=== PATIENT | female | born 1960 | race Caucasian/White ===

== ENCOUNTER 2016-03-12 19:24 | Inpatient (IN) | payer BC, OTHER ==
[~2016-03-12] VITALS: Ht 157.5 cm; Wt 90.0 kg
[2016-03-12] MEDS ORDERED: SOD CHLORIDE 0.9% 1,000 ML IV STA (21:16)
[2016-03-12] MEDS ORDERED: ONDANSETRON 4 MG INJ IV STA ×2 (21:16→21:47)
[2016-03-12] MEDS ORDERED: morphine 4 MG/ML VIAL IV STA (21:16)
[2016-03-12] MEDS ORDERED: METF1000 PO (21:33)
[2016-03-12] MEDS ORDERED: BENA20TA48 PO (21:34)
[2016-03-12] MEDS ORDERED: SIMV10TA PO (21:34)
[2016-03-12 22:02] LABS: ALBUMIN 4.1 g/dl (3.3-4.9); CHLORIDE 101 mmol/L (97-110)
[2016-03-12 22:03] LABS: POTASSIUM 4.6 mmol/L (3.5-5.1); SODIUM 136 mmol/L (135-144)
[2016-03-12 22:05] LABS: ALANINE AMINOTRANSFERASE 30 IU/L (13-69); ALBUMIN/GLOBULIN RATIO 1.07; ALKALINE PHOSPHATASE 147 IU/L (42-121); ANION GAP 22 (8-16); ASPARTATE AMINO TRANSFERASE 41 IU/L (15-46); BILIRUBIN,INDIRECT 0.6 mg/dl (0-1.1); BILIRUBIN,TOTAL 0.6 mg/dl (0.2-1.3); BLOOD UREA NITROGEN 15 mg/dl (7-20); CARBON DIOXIDE 18 mmol/L (21-31); CREATININE 0.59 mg/dl (0.44-1.00); GLUCOSE 260 mg/dl (70-220); TOTAL PROTEIN 7.9 g/dl (6.1-8.1)
[2016-03-12 22:06] LABS: CALCIUM 9.1 mg/dl (8.4-10.2)
[2016-03-12 22:07] LABS: HEMATOCRIT 38.5 % (37.0-47.0); HEMOGLOBIN 13.2 g/dl (12.0-16.0); MEAN CORPUSCULAR HEMOGLOBIN 28.4 pg (29.0-33.0); MEAN CORPUSCULAR HGB CONC 34.3 g/dl (32.0-37.0); MEAN CORPUSCULAR VOLUME 82.7 fl (82.0-101.0); MEAN PLATELET VOLUME 8.6 fl (7.4-10.4); PLATELET COUNT 243 10^3/UL (140-440); RED BLOOD COUNT 4.65 10^6/ul (4.20-5.40); RED CELL DISTRIBUTION WIDTH 14.2 % (11.5-14.5); UNCORRECTED WBC 7.2 10^3/ul (4.8-10.8); WHITE BLOOD COUNT 7.2 10^3/ul (4.8-10.8)
[2016-03-12] MEDS ORDERED: SS SC (22:07)
[2016-03-12 22:09] LABS: CONDITION 1; LH ANALYZER COMMENTS 1
[2016-03-12] MEDS ORDERED: NPH,100I5 SQ (22:09)
[2016-03-12 22:18] LABS: TROPONIN-I < 0.012 ng/ml (0.00-0.12)
--- NOTE | 2016-03-12 22:18 | RADRPT ---
PROCEDURE: CT Abdomen and Pelvis without contrast CLINICAL INDICATION: Abdominal pain, left quadrant TECHNIQUE: Transaxial images were obtained through the abdomen and pelvis on a multi-slice scanner without the intravenous contrast administration. No oral contrast had previously been given. Sagit stevenson and coronal re-formations were subsequently reconstructed. One or more of the following dose reduction techniques were used: - Automated exposure control. - Adjustment of the mA and/or kV according to patient size. - Use of iterative reconstruction technique. Radiation dose: CTDIvol = 22.32 mGy; DLP = 1222.02 mGy-cm. COMPARISON: No prior studies are available for comparison. FINDINGS: Lung bases: The visualized lung bases appear unremarkable. Liver: Normal in size and in attenuation. There is no focal lesion. Gallbladder: Surgical betsy are seen in the gallbladder fossa. Bile ducts: The intra and extrahepatic bile ducts are normal in caliber. Pancreas: Appears normal with no mass or inflammation evident. Spleen: Normal in size with no focal lesion. Adrenals: Normal with no mass identified. Kidneys, ureters and bladder: The right kidney appears normal and there is no hydronephrosis. The r ight ureter appears unremarkable. The left kidney appears edematous and there is considerable perin ephric stranding. There is mild left hydronephrosis. No nephrolith is evident. The ureter is nond ilated and no nephrolith is identified. The bladder is less than optimally distended but appears un remarkable. Phleboliths are seen in the pelvis. Reproductive organs: The uterus is absent and no adnexal mass is identified. Stomach and bowel: There are a few colonic diverticuli but there is no evidence of bowel obstruction or inflammation. The stomach appears normal. Appendix: A normal vermiform appendix is evident. Peritoneum: No free intraperitoneal fluid or air is identified. Aorta: Normal in caliber with no aneurysmal dilatation. IVC: Unremarkable. Lymph nodes: No pathologically enlarged nodes are identified. Osseous structures: Moderate degenerative spine changes are noted. IMPRESSION: 1. The left kidney appears edematous with considerable perinephric stranding compatible with inflam mation or edema. There is mild pelvocaliectasis but no nephrolith is evident. The left ureter is n ormal in caliber and no ureterolith is identified. This raises the possibility of either a stone th at is passed, a nonopaque stone or a sloughed papilla resulting in obstruction, or diffuse pyeloneph ritis. The right kidney, both ureters and the bladder appear unremarkable. 2. There are a couple colonic diverticuli but there is no evidence of bowel obstruction or inflamma tion and a normal vermiform appendix is evident. 3. Status post cholecystectomy with no bile duct dilatation or pancreatic pathology evident. 4. There is no free intraperitoneal fluid or air. 5. Status post hysterectomy. 6. Degenerative spine changes. Physician Lori Date Time Electronically viewed and signed by Physician Lori on 03/12/2016 22:18 RH/
[2016-03-12] MEDS ORDERED: INSULIN LISPRO 100 UNIT/ML VIAL SC STA (22:19)
[2016-03-12] MEDS ORDERED: ACETAMINOPHEN 325 MG TAB PO ONE (22:30)
[2016-03-12 22:32] LABS: LYMPHOCYTES # 0.1 10^3/ul (0.8-2.9); MONOCYTE # 0.1 10^3/ul (0.3-0.9); NEUTROPHIL # 4.4 10^3/ul (1.6-7.5)
[2016-03-12] MEDS ORDERED: VANCOMYCIN 1 GM (PMX) 250 ML IVPB ONE (22:44)
[2016-03-12] MEDS ORDERED: AZTREONAM 1 GM/NS (PMX) 50 ML IVPB ONE (22:44)
[2016-03-12] MEDS ORDERED: SODIUM CHLORIDE 0.9% 1L BAG IV* ONE (22:44)
--- NOTE | 2016-03-12 22:53 | ERA ---
ER Documentation Chief Complaint Date/Time DATE: 03/12/16 TIME: 22:51 Chief Complaint left sided abd pain x 2 days HPI Patient is a 56-year-old female with diabetes and hypertension who presents with left-sided flank pain. The symptoms started yesterday. Today was worse. The pain is constant. She has had no treatment as of yet. She has had vomiting and fever. Upon review of old medical records this is the patient's first visit to the ER. She does not remember the name of her primary doctor. ROS All systems reviewed and are negative except as per history of present illness. Medications Home Meds Reported Medications NPH, Human Insulin Isophane (Humulin N Kwikpen) 100 Unit/1 Ml Insuln.pen, UNIT SQ BID, EA 26 UNITS QAM AND 20 UNITS QHS 03/12/16 Insulin Human Regular (Novolin-R U-100) 100 Unit/Ml Soln, 5 UNITS SC AC MEALS BID, EA 03/12/16 Simvastatin* (Zocor*) 10 Mg Tablet, 10 MG PO QHS, #30 TAB 03/12/16 Benazepril Hcl* (Benazepril Hcl*) 20 Mg Tablet, 20 MG PO DAILY, #30 TAB 03/12/16 Metformin Hcl* (Metformin Hcl*) 1,000 Mg Tablet, 1000 MG PO WITH BREAKFAST DINNE , #60 TAB 03/12/16 Allergies Allergies: Coded Allergies: Penicillins (Unverified Allergy, Unknown, 03/12/16) PMhx/Soc Medical and Surgical Hx: pt denies Surgical Hx Anesthesia Reaction: No Hx Neurological Disorder: No Hx Respiratory Disorders: No Hx Cardiac Disorders: No Hx Psychiatric Problems: No Hx Miscellaneous Medical Probl: Yes (HTN, hyperlipidemia, DM) Hx Alcohol Use: No Hx Substance Use: No Hx Tobacco Use: No Smoking Status: Never smoker FmHx Family History: diabetes Physical Exam Vitals Vital Signs Date Time Temp Pulse Resp B/P Pulse Ox O2 Delivery O2 Flow Rate FiO2 03/12/16 22:18 103.0 03/12/16 20:13 101.7 76 20 220/117 96 Physical Exam Const: Moderate distress Head: Atraumatic Eyes: Normal Conjunctiva ENT: Normal External Ears, Nose and Mouth. Neck: Full range of motion..~ No meningismus. Resp: Clear to auscultation bilaterally Cardio: Regular rate and rhythm, no murmurs Abd: Soft, left-sided abdominal pain as well as left-sided flank pain Skin: No petechiae or rashes Back: No midline or flank tenderness Ext: No cyanosis, or edema Neur: Awake and alert Psych: Normal Mood and Affect Result Diagram: 03/12/16213103/12/162131 Results 24 hrs Laboratory Tests Test 03/12/16 21:32 03/12/16 22:26 Alanine Aminotransferase (ALT/SGPT) 30IU/L Albumin 4.1g/dl Albumin/Globulin Ratio 1.07 Alkaline Phosphatase 147IU/L Anion Gap 22 Aspartate Amino Transf (AST/SGOT) 41IU/L Band Neutrophils % 36.0% Basophils # 10^3/ul Basophils % % Blood Morphology Comment Blood Urea Nitrogen 15mg/dl Calcium Level 9.1mg/dl Carbon Dioxide Level 18mmol/L Chloride Level 101mmol/L Creatinine 0.59mg/dl Direct Bilirubin 0.00mg/dl Eosinophils # 10^3/ul Eosinophils % % Globulin 3.80g/dl Glucose Level 260mg/dl Hematocrit 38.5% Hemoglobin 13.2g/dl Indirect Bilirubin 0.6mg/dl Lipase 100U/L Lymphocytes # 0.110^3/ul Lymphocytes % 2.0% Mean Corpuscular Hemoglobin 28.4pg Mean Corpuscular Hemoglobin Concent 34.3g/dl Mean Corpuscular Volume 82.7fl Mean Platelet Volume 8.6fl Monocytes # 0.110^3/ul Monocytes % 1.0% Neutrophils # 4.410^3/ul Neutrophils % 61.0% Nucleated Red Blood Cells # 10^3/ul Nucleated Red Blood Cells % 0.0/100WBC Platelet Count 05588^3/UL Potassium Level 4.6mmol/L Red Blood Count 4.6510^6/ul Red Cell Distribution Width 14.2% Sodium Level 136mmol/L Total Bilirubin 0.6mg/dl Total Protein 7.9g/dl Troponin I < 0.012ng/ml White Blood Count 7.210^3/ul Bedside Glucose 247mg/dL Current Medications Medications (Trade) Dose Ordered Sig/Nolvia Route PRN Reason Start Time Stop Time Status Last Admin Dose Admin Sodium Chloride (NS) 1,000 ml @ 1,000 mls/hr Q1H STAT IV 03/12/16 21:16 03/12/16 22:15 DC 03/12/16 21:30 Morphine Sulfate (morphine) 4 mg ONCE STAT IV 03/12/16 21:16 03/12/16 21:17 DC 03/12/16 21:30 Ondansetron HCl (Zofran Inj) 4 mg ONCE STAT IV 03/12/16 21:16 03/12/16 21:17 DC 03/12/16 21:30 Ondansetron HCl (Zofran Inj) 4 mg ONCE STAT IV 03/12/16 21:47 03/12/16 21:48 DC 03/12/16 21:50 Acetaminophen (Tylenol Tab) 650 mg ONCE ONCE PO 03/12/16 22:30 03/12/16 22:31 DC 03/12/16 22:22 Insulin Human Lispro (Humalog) 5 unit ONCE STAT SC 03/12/16 22:19 03/12/16 22:41 DC Lorazepam (Ativan) 0.5 mg ONCE ONCE IV 03/12/16 23:00 03/12/16 23:01 Sodium Chloride 2740 ml 2,740 ml BOLUS OVER 2 HOURS STAT IV* 03/12/16 22:44 03/12/16 22:45 UNV Vancomycin HCl 250 ml @ 125 mls/hr ONCE STAT IVPB 03/12/16 22:44 03/13/16 00:43 UNV Aztreonam (Azactam 1gm/NS (Pmx)) 50 ml @ 100 mls/hr ONCE STAT IVPB 03/12/16 22:44 03/12/16 23:13 UNV Procedures/MDM Chest x-ray pending. CT scan shows pyelonephritis per radiology. Admit MDM: Patient's infectious symptoms have not stabilized and the patient is at risk of rapid decompensation. The patient will be admitted for careful hydration, antibiotic therapy, and infectious source control. Severe Sepsis criteria: Infectious source: Pyelonephritis End organ damage indicated by: No end organ damage at this time Sepsis Management: Time of recognition of sepsis: 22:18 Within 3 hours of recognition: Blood cultures x 2 before broad-spectrum antibiotics: Yes 30 ml/kg NS bolus Completed Initial lactate pending Repeat lactate pending Time of recognition of septic shock: No septic shock Septic Shock Assessment: Any lactic acid > 4.0 No Persistent hypotension (SBP < 90 or 40 mmHg drop, MAP < 65) despite 30 mL/kg IV fluid bolus No Volume Re-assessment for Septic Shock (post 30 ml/kg bolus): No septic shock at this time Persistent Hypotension Treatment: Comfort care No Central line Not Required Vasopressor started Not required I considered further perfusion assessment with CVP measurement, SCVO2, bedside ultrasound volume assessment, passive leg raise, trial of further fluid bolus. And proceeded with 30 ml/kg fluid bolus of NSS, broad spectrum antibiotics, and admission. The patient is pending lactic acid and urinalysis results at this time. The patient will be signed out to the oncoming physician who will call the admitting doctor for admission orders. Accepting Care Team Current data and ongoing care discussed. Admitting Physician: Yusef connist for admission given the patient's insurance account assistant(s): None Outstanding Data: Culture results, lactic acid, and urinalysis Critical Care: Critical care time 35 minutes excluding all billable procedures Emergent fluid management while maintaining close respiratory support. Provision of immediate and broad-spectrum antibiotic therapy. Simultaneous assessment for possible sources in order to direct targeted therapy. Consideration for invasive and chemical support to prevent cardiopulmonary collapse. Departure Diagnosis: Primary Impression: Sepsis Qualified Code: A41.9 - Sepsis, due to unspecified organism Additional Impressions: Pyelonephritis Abdominal pain Qualified Code: R10.12 - Left upper quadrant pain Condition: CHACHA Riggins MD Mar 12, 2016 22:53
[2016-03-12 22:59] LABS: ADD UMIC YES; URINE BILIRUBIN (Dip) NEGATIVE (NEGATIVE); URINE BLOOD (Dip) 3+ (NEGATIVE); URINE COLOR LT. YELLOW (YELLOW); URINE GLUCOSE (Dip) >=1000 % (NEGATIVE); URINE KETONES (Dip) TRACE (NEGATIVE); URINE LEUKOCYTE ESTERASE (Dip) 1+ (NEGATIVE); URINE NITRITE (Dip) NEGATIVE (NEGATIVE); URINE TOTAL PROTEIN (Dip) TRACE (NEGATIVE); URINE UROBILINOGEN (Dip) 0.2 E.U./dL (0.1-1.0)
[2016-03-12] MEDS ORDERED: LORAZEPAM 2 MG INJ IV ONE (23:00)
[2016-03-12 23:12] LABS: BACTERIA,URINE MANY; SQUAMOUS EPITHELIAL CELL,UR MODERATE; URINE RBCS >50 /HPF (0)
--- NOTE | 2016-03-12 23:33 | RADRPT ---
PROCEDURE: CHEST - 1 VIEW CLINICAL INDICATION: 56-year-old female with chest pain. TECHNIQUE: A single frontal AP semi-erect view of the chest was performed portably. The images we re reviewed on a PACS workstation. COMPARISON: Chest x-ray November 14, 2008; CT abdomen/pelvis March 12, 2016. FINDINGS: The cardiomediastinal silhouette is within normal limits and without significant interval change. T here is no evidence for an infiltrate. There is no evidence for congestive heart failure. There is no evidence for pneumothorax. The osseous structures are intact. IMPRESSION: No evidence for active cardiopulmonary disease. .David Abarca MD, MD Date Time Electronically viewed and signed by .David Abarca MD, on 03/12/2016 23:32 .Piedad/
[2016-03-12 23:38] LABS: INR 1.09; PROTIME 14.1 Sec (12.2-14.2); PT RATIO 1.1
[2016-03-12 23:39] LABS: PARTIAL THROMBOPLASTIN TIME 29.3 Sec (25.0-35.0)
[2016-03-12 23:52] VITALS: TEMP 99.8
[2016-03-13] VITALS (10 sets, daily range): BP systolic 92–131; BP diastolic 46–63; PULSE 101–108; RESP 18–20; Ht 157.5 cm; Wt 90.0 kg
[2016-03-13] MEDS ORDERED: ONDANSETRON 4 MG INJ IV PRN
[2016-03-13] MEDS ORDERED: ACETAMINOPHEN 325 MG TAB PO PRN
[2016-03-13] MEDS ORDERED: SOD CHLORIDE 0.9% 1,000 ML IV STA (00:19)
[2016-03-13] MEDS: SOD CHLORIDE 0.9% 1,000 ML IV SCH ×7 (00:32→23:40)
--- NOTE | 2016-03-13 00:54 | QN ---
Documentation Comment H&P dict a/p 1. [email or web address] 2. LUCIANA Garcia MD Mar 13, 2016 00:54
[2016-03-13] MEDS ORDERED: morphine 4 MG/ML VIAL IV PRN (01:00)
--- NOTE | 2016-03-13 02:06 | HP ---
DATE OF ADMISSION: 03/13/2016 CHIEF COMPLAINT: Abdominal pain. HISTORY OF PRESENT ILLNESS: Ms. Lara presents to the emergency room at [facility] h a 1-day history of abdominal pain, which she localizes to the left flank area. This is associated with some nausea and fever. She states that she has been unable to eat over the last several hours , though she ate last approximately 8-9 hours ago. She has been tolerating water. She denies any d ysuria. States that she did have some flu-like symptoms approximately 1 week ago, but did fully rec overed from that. PAST MEDICAL HISTORY: Significant for diabetes. MEDICATIONS: Include: 1. NPH insulin 5 units b.i.d. 2. Sliding scale. 3. Zocor 10 mg daily. 4. Benazepril. ALLERGIES: PENICILLIN. SOCIAL HISTORY: Lives in [place] with her and 2 adult children. Denies tobacco, alcoh ol, or illicit drug use. FAMILY HISTORY: Noncontributory. REVIEW OF SYSTEMS: Five systems reviewed and found not to be revealing. PHYSICAL EXAMINATION: VITAL SIGNS: Blood pressure is 110/69, pulse rate 110, respirations 20, temperature is 99.8; it shira uld be noted that T-max is 103 here in the emergency room. GENERAL: A middle-aged woman, somewhat ill appearing. HEENT: Normocephalic, atraumatic without any scleral icterus or perioral cyanosis. Mucous membrane s are moist. NECK: Soft and supple without masses. No evidence of jugular venous distention or carotid bruits. CHEST: Clear to auscultation and percussion bilaterally. HEART: Regular rate and rhythm, S1-S2, no added sounds. ABDOMEN: Soft, nontender, nondistended without palpable hepatosplenomegaly. EXTREMITIES: Without clubbing, cyanosis or edema. SKIN: Without rashes. NEUROLOGIC: Grossly intact. LABORATORY STUDIES: Reveal hemoglobin of 13.2 g/dL, white count of 7200, platelets of 243,000. INR is 1.1. Sodium 136, potassium 4.6, chloride 101, bicarbonate 18, BUN 15, creatinine 0.59, glucose 260. Liver function tests remarkable only for an alkaline phosphatase 147. Lactic acid was 5.1. U A shows greater than 50 red cells and white cells. CT scan of abdomen and pelvis reveals left-sided edematous-appearing kidney without hydronephrosis and with perinephric stranding. ASSESSMENT AND PLAN: 1. Pyelonephritis. We will plan to treat with intravenous fluids and aztreonam, and await urine cu lture. 2. Diabetes. Continue Accu-Cheks and sliding scale. 3. Prophylaxis with Lovenox. Dictated By: LUCIANA THOMAS MD RER/NTS Conf#: [id number] DID#: [id number]
[2016-03-13] MEDS: ACETAMINOPHEN 325 MG TAB PO PRN ×3 (03:56→22:08)
[2016-03-13] MEDS ORDERED: SOD CHLORIDE 0.9% 1,000 ML IV ONE ×2 (04:30→05:30)
[2016-03-13] MEDS ORDERED: AZTREONAM 1 GM/NS (PMX) 50 ML IVPB SCH (06:00)
[2016-03-13 06:01] LABS: BASOPHILS % 0.1 % (0.0-2.0); HEMATOCRIT 30.6 % (37.0-47.0); HEMOGLOBIN 10.7 g/dl (12.0-16.0); LYMPHOCYTES # 0.4 10^3/ul (0.8-2.9); MEAN CORPUSCULAR HEMOGLOBIN 28.9 pg (29.0-33.0); MEAN CORPUSCULAR HGB CONC 34.8 g/dl (32.0-37.0); MEAN PLATELET VOLUME 8.7 fl (7.4-10.4); MONOCYTE # 0.7 10^3/ul (0.3-0.9); MONOCYTES % 4.9 % (0.0-11.0); NEUTROPHIL # 12.9 10^3/ul (1.6-7.5); PLATELET COUNT 197 10^3/UL (140-440); RED BLOOD COUNT 3.69 10^6/ul (4.20-5.40); RED CELL DISTRIBUTION WIDTH 14.6 % (11.5-14.5)
[2016-03-13 06:17] LABS: CONDITION 1; LH ANALYZER COMMENTS 1; SUSPECT 1
[2016-03-13 07:30] LABS: POTASSIUM 3.2 mmol/L (3.5-5.1)
[2016-03-13 07:32] LABS: CREATININE 0.61 mg/dl (0.44-1.00)
[2016-03-13 07:33] LABS: CALCIUM 7.4 mg/dl (8.4-10.2)
[2016-03-13] MEDS: metFORMIN 500 MG TAB PO SCH ×2 (08:54→18:13)
[2016-03-13] MEDS: BENAZEPRIL 20 MG TAB PO SCH (09:00)
[2016-03-13] MEDS: INSULIN ASPART [NOVOLOG] 3 ML PEN SC SCH ×4 (09:00→20:58)
[2016-03-13] MEDS ORDERED: DEXTROSE 50% 50 ML SYRINGE IV PRN ×2 (10:00)
[2016-03-13] MEDS ORDERED: GLUCAGON 1 MG INJ IM PRN (10:00)
[2016-03-13] MEDS ORDERED: GLUCOSE GEL 15 GRAM TUBE PO PRN ×2 (10:00)
[2016-03-13] MEDS ORDERED: GLUCOSE GEL 15 GRAM TUBE BUCCAL PRN (10:00)
[2016-03-13] MEDS ORDERED: POTASSIUM CHLORIDE (SR) 20 MEQ TAB PO STA (11:05)
[2016-03-13] MEDS: IMIPENEM-CILAST 500MG IV (PMX) 100 ML IVPB SCH ×3 (11:43→23:39)
[2016-03-13] MEDS: ENOXAPARIN 40 MG/0.4 ML SYG SC SCH (11:51)
[2016-03-13] MEDS: ONDANSETRON 4 MG INJ IV PRN (13:20)
--- NOTE | 2016-03-13 14:23 | PN ---
Date/Time of Note Date/Time of Note DATE: 03/13/16 TIME: 14:08 Assessment/Plan VTE Prophylaxis VTE Prophylaxis Intervention: LMWH Lines/Catheters IV [facility]ter [facility]from [facility] Urinary Cath still in place: No Assessment/Plan Assessment/Plan 56 yo female with: 1. GNR bacteremia, Pyelonephritis and sepsis, still with mild TTP left flank/LLQ Double GNR coverage with Imipenem and Levaquin and need to repeat blood cx on Monitor for now and follow up with cultures for antibiotic adjustment. Continue IVF for now 2. Diabetes Mellitus: Metformin resumed, will add Lantus 20 units qhs (patient on NPH 28 AM/20 HS), may also resume Novolog 5 units QAC if needed Continue Accu-Cheks and sliding scale. A1c pending 3. Hypertension: Holding benazepril due to sepsis and hypotensive episode on admission 4. Hyperlipidemia: continue statin therapy. 5. Hypokalemia: replete Prophylaxis: DVT ppx with Lovenox and GI ppx with Pepcid Disposition: double GNR coverage given severe sxs, f/u culture sensitivities, repeat blood cx on 03/14 for clearance Subjective 24 Hr Interval Summary Free Text/Dictation Patient with episodes of chills Fever overnight Mild sinus tach but BP better Blood and Urine cx positive for GNR Exam/Review of Systems Vital Signs Vitals Vital Signs Date Time Temp Pulse Resp B/P Pulse Ox O2 Delivery O2 Flow Rate FiO2 03/13/16 12:30 99.6 104 20 131/63 96 Room Air Intake and Output 03/12/16 03/12/16 03/13/16 15:00 23:00 07:00 Intake Total 2690 ml Output Total 0 ml Balance 2690 ml Exam Constitutional: alert, oriented, other (having chills ), well developed Respiratory: clear to auscultation, normal air movement Cardiovascular: nl pulses, other (sinus tachy ) Gastrointestinal: soft, tender (mild TTP left flank/LLQ) Musculoskeletal: nl extremities to inspection Extremities: normal pulses, other (no edema, clubbing or cyanosis ) Neurological: COIL WINDER REPAIR II-XII intact, nl mental status, nl speech, other ( generalised weakness ) Results Result Diagram: 03/13/1641903/13/16419 Results 24 hrs Laboratory Tests Test 03/12/16 21:32 03/12/16 22:26 03/12/16 22:47 03/12/16 23:06 Alanine Aminotransferase (ALT/SGPT) 30 Albumin 4.1 Albumin/Globulin Ratio 1.07 Alkaline Phosphatase 147 H Anion Gap 22 H Aspartate Amino Transf (AST/SGOT) 41 Band Neutrophils % 36.0 H Basophils # Basophils % Blood Morphology Comment Blood Urea Nitrogen 15 Calcium Level 9.1 Carbon Dioxide Level 18 L Chloride Level 101 Creatinine 0.59 Direct Bilirubin 0.00 Eosinophils # Eosinophils % Globulin 3.80 H Glucose Level 260 H Hematocrit 38.5 Hemoglobin 13.2 Indirect Bilirubin 0.6 Lipase 100 Lymphocytes # 0.1 L Lymphocytes % 2.0 L Mean Corpuscular Hemoglobin 28.4 L Mean Corpuscular Hemoglobin Concent 34.3 Mean Corpuscular Volume 82.7 Mean Platelet Volume 8.6 Monocytes # 0.1 L Monocytes % 1.0 Neutrophils # 4.4 Neutrophils % 61.0 Nucleated Red Blood Cells # Nucleated Red Blood Cells % 0.0 Platelet Count 243 Potassium Level 4.6 Red Blood Count 4.65 Red Cell Distribution Width 14.2 Sodium Level 136 Total Bilirubin 0.6 Total Protein 7.9 Troponin I < 0.012 White Blood Count 7.2 Bedside Glucose 247 H Urine Bacteria MANY Urine Bilirubin NEGATIVE Urine Clarity CLOUDY Urine Color LT. YELLOW Urine Glucose >=1000 Urine Hemoglobin 3+ H Urine Ketones TRACE H Urine Leukocyte Esterase 1+ H Urine Microscopic RBC >50 Urine Microscopic WBC >50 Urine Nitrite NEGATIVE Urine Specific Lancing 1.015 Urine Squamous Epithelial Cells MODERATE Urine Total Protein TRACE Urine Urobilinogen 0.2 E.U./dL Urine pH 5.0 Activated Partial Thromboplast Time 29.3 INR International Normalized Ratio 1.09 Lactic Acid Level 5.1 *H Prothrombin Time 14.1 Prothrombin Time Ratio 1.1 Test 03/13/16 02:00 03/13/16 02:51 03/13/16 04:20 03/13/16 08:06 Lactic Acid Level 5.5 *H 2.4 H Bedside Glucose 161 186 Anion Gap 15 # Basophils # 0.0 Basophils % 0.1 Blood Morphology Comment Blood Urea Nitrogen 13 Calcium Level 7.4 L Carbon Dioxide Level 18 L Chloride Level 109 Creatinine 0.61 Eosinophils # 0.0 Eosinophils % 0.0 Glucose Level 184 Hematocrit 30.6 #L Hemoglobin 10.7 L Lymphocytes # 0.4 L Lymphocytes % 3.0 L Mean Corpuscular Hemoglobin 28.9 L Mean Corpuscular Hemoglobin Concent 34.8 Mean Corpuscular Volume 83.0 Mean Platelet Volume 8.7 Monocytes # 0.7 Monocytes % 4.9 Neutrophils # 12.9 H Neutrophils % 92.0 H Nucleated Red Blood Cells # 0.0 Nucleated Red Blood Cells % 0.0 Platelet Count 197 Potassium Level 3.2 L Red Blood Count 3.69 #L Red Cell Distribution Width 14.6 H Sodium Level 139 White Blood Count 14.0 #H Test 03/13/16 08:40 03/13/16 11:48 Lactic Acid Level 2.1 Bedside Glucose 221 H Medications Medications Current Medications Benazepril HCl (Lotensin) 20 mg DAILY PO ; Start 03/13/16 at 09:00 Atorvastatin Calcium 10 mg 10 mg DAILY@21 PO ; Start 03/13/16 at 21:00 Sodium Chloride (NS) 1,000 ml @ 125 mls/hr Q8H IV Last administered on 06:42; Admin Dose 125 MLS/HR; Start 03/13/16 at 01:00 Enoxaparin Sodium (Lovenox) 40 mg DAILY SC Last administered on 03/13/16 11:51 ; Admin Dose 40 MG; Start 03/13/16 at 09:00 Acetaminophen (Tylenol Tab) 650 mg Q4H PRN PO pain/fever Last administered on 03:56; Admin Dose 650 MG; Start 03/13/16 at 01:00 Ondansetron HCl (Zofran Inj) 4 mg Q4H PRN IV nausea Last administered on 13:20; Admin Dose 4 MG; Start 03/13/16 at 01:00 Morphine Sulfate (morphine) 4 mg Q4H PRN IV pain; Start 03/13/16 at 01:00 Influenza Virus Vaccine (Fluzone) 0.5 ml ONCE ONCE IM* ; Start 03/15/16 at 09:00 ; Stop 03/15/16 at 09:01 Miscellaneous Information 1 ea NOTE XX ; Start 03/13/16 at 10:00 Glucose (Glutose) 15 gm Q15M PRN PO DECREASED GLUCOSE; Start 03/13/16 at 10:00 Glucose (Glutose) 22.5 gm Q15M PRN PO DECREASED GLUCOSE; Start 03/13/16 at 10: 00 Dextrose (D50w Syringe) 25 ml Q15M PRN IV DECREASED GLUCOSE; Start 03/13/16 at 10:00 Dextrose (D50w Syringe) 50 ml Q15M PRN IV DECREASED GLUCOSE; Start 03/13/16 at 10:00 Glucagon (Glucagen) 1 mg Q15M PRN IM DECREASED GLUCOSE; Start 03/13/16 at 10:00 Glucose 15 gm 15 gm Q15M PRN BUCCAL DECREASED GLUCOSE; Start 03/13/16 at 10:00 Imipenem/ Cilastatin Sodium 100 ml @ 100 mls/hr Q6 IVPB Last administered on t 11:43; Admin Dose 100 MLS/HR; Start 03/13/16 at 12:00 Levofloxacin/ Dextrose (Levaquin 750 Mg/ D5W 150 ml (Pmx)) 150 ml @ 100 mls/hr Q24H IVPB ; Start 03/13/16 at 14:30; Status UNV Procedures Procedures PROCEDURE: CT Abdomen and Pelvis without contrast CLINICAL INDICATION: Abdominal pain, left quadrant TECHNIQUE: Transaxial images were obtained through the abdomen and pelvis on a multi-slice scanner without the intravenous contrast administration. No oral contrast had previously been given. Sagittal and coronal re-formations were subsequently reconstructed. One or more of the following dose reduction techniques were used: - Automated exposure control. - Adjustment of the mA and/or kV according to patient size. - Use of iterative reconstruction technique. Radiation dose: CTDIvol = 22.32 mGy; DLP = 1222.02 mGy-cm. COMPARISON: No prior studies are available for comparison. FINDINGS: Lung bases: The visualized lung bases appear unremarkable. Liver: Normal in size and in attenuation. There is no focal lesion. Gallbladder: Surgical betsy are seen in the gallbladder fossa. Bile ducts: The intra and extrahepatic bile ducts are normal in caliber. Pancreas: Appears normal with no mass or inflammation evident. Spleen: Normal in size with no focal lesion. Adrenals: Normal with no mass identified. Kidneys, ureters and bladder: The right kidney appears normal and there is no hydronephrosis. The right ureter appears unremarkable. The left kidney appears edematous and there is considerable perinephric stranding. There is mild left hydronephrosis. No nephrolith is evident. The ureter is nondilated and no nephrolith is identified. The bladder is less than optimally distended but appears unremarkable. Phleboliths are seen in the pelvis. Reproductive organs: The uterus is absent and no adnexal mass is identified. Stomach and bowel: There are a few colonic diverticuli but there is no evidence of bowel obstruction or inflammation. The stomach appears normal. Appendix: A normal vermiform appendix is evident. Peritoneum: No free intraperitoneal fluid or air is identified. Aorta: Normal in caliber with no aneurysmal dilatation. IVC: Unremarkable. Lymph nodes: No pathologically enlarged nodes are identified. Osseous structures: Moderate degenerative spine changes are noted. IMPRESSION: 1. The left kidney appears edematous with considerable perinephric stranding compatible with inflammation or edema. There is mild pelvocaliectasis but no nephrolith is evident. The left ureter is normal in caliber and no ureterolith is identified. This raises the possibility of either a stone that is passed, a nonopaque stone or a sloughed papilla resulting in obstruction, or diffuse pyelonephritis. The right kidney, both ureters and the bladder appear unremarkable. 2. There are a couple colonic diverticuli but there is no evidence of bowel obstruction or inflammation and a normal vermiform appendix is evident. 3. Status post cholecystectomy with no bile duct dilatation or pancreatic pathology evident. 4. There is no free intraperitoneal fluid or air. 5. Status post hysterectomy. 6. Degenerative spine changes. Physician Lori Date Time Electronically viewed and signed by Physician Lori on 03/12/2016 22:18 LISANDRO QUINTERO Mar 13, 2016 14:20
[2016-03-13] MEDS: LEVOFLOXACIN 750MG/D5W (PMX) 150 ML IVPB SCH (15:56)
[2016-03-13] MEDS: ATORVASTATIN 10 MG TAB PO SCH (20:59)
[2016-03-13] MEDS: FAMOTIDINE 20 MG TAB PO SCH (20:59)
[2016-03-13] MEDS ORDERED: INSULIN GLARGINE [LANtus] 3 ML PEN SC SCH (21:00)
[2016-03-14] MEDS: ONDANSETRON 4 MG INJ IV PRN ×2 (04:38→08:35)
[2016-03-14] MEDS: IMIPENEM-CILAST 500MG IV (PMX) 100 ML IVPB SCH ×4 (05:56→23:24)
[2016-03-14] MEDS: SOD CHLORIDE 0.9% 1,000 ML IV SCH ×4 (05:56→23:15)
[2016-03-14 05:59] LABS: BASOPHILS % 0.1 % (0.0-2.0); EOSINOPHILS % 0.2 % (0.0-7.0); HEMATOCRIT 32.2 % (37.0-47.0); HEMOGLOBIN 11.4 g/dl (12.0-16.0); LYMPHOCYTES # 1.1 10^3/ul (0.8-2.9); MEAN CORPUSCULAR HEMOGLOBIN 28.9 pg (29.0-33.0); MEAN CORPUSCULAR HGB CONC 35.4 g/dl (32.0-37.0); MEAN CORPUSCULAR VOLUME 81.8 fl (82.0-101.0); MONOCYTE # 0.7 10^3/ul (0.3-0.9); MONOCYTES % 4.3 % (0.0-11.0); NEUTROPHIL # 14.3 10^3/ul (1.6-7.5); NEUTROPHILS % 88.4 % (39.0-77.0); PLATELET COUNT 187 10^3/UL (140-440); RED BLOOD COUNT 3.93 10^6/ul (4.20-5.40); RED CELL DISTRIBUTION WIDTH 14.9 % (11.5-14.5); UNCORRECTED WBC 16.2 10^3/ul (4.8-10.8); WHITE BLOOD COUNT 16.2 10^3/ul (4.8-10.8)
[2016-03-14 06:02] LABS: CONDITION 1; LH ANALYZER COMMENTS 1
[2016-03-14 06:05] LABS: ALBUMIN 2.9 g/dl (3.3-4.9)
[2016-03-14 06:07] LABS: CREATININE 0.55 mg/dl (0.44-1.00)
[2016-03-14 06:08] LABS: ALBUMIN/GLOBULIN RATIO 0.87; BILIRUBIN,INDIRECT 0.2 mg/dl (0-1.1); BILIRUBIN,TOTAL 0.2 mg/dl (0.2-1.3); CALCIUM 7.6 mg/dl (8.4-10.2); TOTAL PROTEIN 6.2 g/dl (6.1-8.1)
[2016-03-14 06:16] LABS: MAGNESIUM 1.6 mg/dl (1.7-2.5)
[2016-03-14 07:00] VITALS: BP 156/71; RESP 20
[2016-03-14] MEDS: metFORMIN 500 MG TAB PO SCH ×2 (07:50→18:03)
[2016-03-14 07:51] VITALS: BP 141/77; RESP 19
[2016-03-14] MEDS: FAMOTIDINE 20 MG TAB PO SCH ×2 (08:35→20:31)
[2016-03-14] MEDS: BENAZEPRIL 20 MG TAB PO SCH (08:36)
[2016-03-14] MEDS: INSULIN ASPART [NOVOLOG] 3 ML PEN SC SCH ×4 (08:46→20:37)
[2016-03-14 08:47] VITALS: BP 157/72; RESP 20
--- NOTE | 2016-03-14 09:35 | PN ---
Date/Time of Note Date/Time of Note DATE: 03/14/16 TIME: 09:29 Assessment/Plan VTE Prophylaxis VTE Prophylaxis Intervention: ambulation, LMWH Lines/Catheters IV Catheter Type (from Nrs): Peripheral IV Urinary Cath still in place: No Assessment/Plan Assessment/Plan 56 yo female with: 1. E. Coli in urine culture and presumed e. coli bacteremia, Pyelonephritis and sepsis, still with mild TTP left flank/LLQ; WBC increased to 16.2. On levaquin and imipenem, which covers (ESBL). Monitor for now and follow up with cultures for antibiotic adjustment. I called microbiology and the organism is Continue IVF for now, especially as she is vomiting. 2. Diabetes Mellitus: Metformin resumed, will increase Lantus 25 units qhs ( patient on NPH 28 AM/20 HS), may also resume Novolog 5 units QAC if needed Continue Accu-Cheks and sliding scale. A1c pending 3. Hypertension: May need to re-start benazepril as BP is increasing. 4. Hyperlipidemia: continue statin therapy. 5. Hypokalemia: replete Mg as well as K+ Prophylaxis: DVT ppx with Lovenox and GI ppx with Pepcid Disposition: double GNR coverage given severe sxs, f/u culture sensitivities, repeat blood cultures Subjective 24 Hr Interval Summary Free Text/Dictation Episode of nausea and emesis this AM. Not eating much food and WBC increased. Exam/Review of Systems Vital Signs Vitals Vital Signs Date Time Temp Pulse Resp B/P Pulse Ox O2 Delivery O2 Flow Rate FiO2 03/14/16 08:47 97.5 92 20 157/72 98 03/13/16 12:30 Room Air Intake and Output 03/13/16 03/13/16 03/14/16 15:00 23:00 07:00 Intake Total 150 ml 2030 ml 1300 ml Output Total 500 ml 2200 ml Balance 150 ml 1530 ml -900 ml Exam Head: normocephalic Eyes: nl conjunctiva ENMT: other (oropharnyx dry.) Neck: supple Respiratory: clear to auscultation Cardiovascular: regular rate and rhythm Gastrointestinal: soft, tender Extremities: normal pulses Results Result Diagram: 03/14/16 0432 03/14/16 0432 Results 24 hrs Laboratory Tests Test 03/13/16 11:48 03/13/16 17:13 03/13/16 20:51 03/14/16 01:25 Bedside Glucose 221 H 252 H 185 159 Test 03/14/16 04:32 03/14/16 07:37 Alanine Aminotransferase (ALT/SGPT) 28 Albumin 2.9 #L Albumin/Globulin Ratio 0.87 Alkaline Phosphatase 109 Anion Gap 15 Aspartate Amino Transf (AST/SGOT) 18 Basophils # 0.0 Basophils % 0.1 Blood Morphology Comment Blood Urea Nitrogen 9 Calcium Level 7.6 L Carbon Dioxide Level 21 Chloride Level 110 Creatinine 0.55 Direct Bilirubin 0.00 Eosinophils # 0.0 Eosinophils % 0.2 Globulin 3.30 H Glucose Level 140 # Hematocrit 32.2 L Hemoglobin 11.4 L Indirect Bilirubin 0.2 Lymphocytes # 1.1 Lymphocytes % 7.0 L Magnesium Level 1.6 L Mean Corpuscular Hemoglobin 28.9 L Mean Corpuscular Hemoglobin Concent 35.4 Mean Corpuscular Volume 81.8 L Mean Platelet Volume 9.0 Monocytes # 0.7 Monocytes % 4.3 Neutrophils # 14.3 H Neutrophils % 88.4 H Nucleated Red Blood Cells # 0.0 Nucleated Red Blood Cells % 0.0 Phosphorus Level 2.0 L Platelet Count 187 Potassium Level 4.0 Red Blood Count 3.93 L Red Cell Distribution Width 14.9 H Sodium Level 142 Total Bilirubin 0.2 Total Protein 6.2 # White Blood Count 16.2 H Bedside Glucose 171 Medications Medications Current Medications Benazepril HCl (Lotensin) 20 mg DAILY PO Last administered on 03/14/16 08:36; Admin Dose 20 MG; Start 03/13/16 at 09:00 Atorvastatin Calcium 10 mg 10 mg DAILY@21 PO Last administered on 03/13/16 20: 59; Admin Dose 10 MG; Start 03/13/16 at 21:00 Sodium Chloride (NS) 1,000 ml @ 125 mls/hr Q8H IV Last administered on 05:56; Admin Dose 125 MLS/HR; Start 03/13/16 at 01:00 Enoxaparin Sodium (Lovenox) 40 mg DAILY SC Last administered on 03/13/16 11:51 ; Admin Dose 40 MG; Start 03/13/16 at 09:00 Acetaminophen (Tylenol Tab) 650 mg Q4H PRN PO pain/fever Last administered on 22:08; Admin Dose 650 MG; Start 03/13/16 at 01:00 Ondansetron HCl (Zofran Inj) 4 mg Q4H PRN IV nausea Last administered on 08:35; Admin Dose 4 MG; Start 03/13/16 at 01:00 Morphine Sulfate (morphine) 4 mg Q4H PRN IV pain Last administered on 22:12; Admin Dose 4 MG; Start 03/13/16 at 01:00 Influenza Virus Vaccine (Fluzone) 0.5 ml ONCE ONCE IM* ; Start 03/15/16 at 09:00 ; Stop 03/15/16 at 09:01 Miscellaneous Information 1 ea NOTE XX ; Start 03/13/16 at 10:00 Glucose (Glutose) 15 gm Q15M PRN PO DECREASED GLUCOSE; Start 03/13/16 at 10:00 Glucose (Glutose) 22.5 gm Q15M PRN PO DECREASED GLUCOSE; Start 03/13/16 at 10: 00 Dextrose (D50w Syringe) 25 ml Q15M PRN IV DECREASED GLUCOSE; Start 03/13/16 at 10:00 Dextrose (D50w Syringe) 50 ml Q15M PRN IV DECREASED GLUCOSE; Start 03/13/16 at 10:00 Glucagon (Glucagen) 1 mg Q15M PRN IM DECREASED GLUCOSE; Start 03/13/16 at 10:00 Glucose 15 gm 15 gm Q15M PRN BUCCAL DECREASED GLUCOSE; Start 03/13/16 at 10:00 Imipenem/ Cilastatin Sodium 100 ml @ 100 mls/hr Q6 IVPB Last administered on 05:56; Admin Dose 100 MLS/HR; Start 03/13/16 at 12:00 Levofloxacin/ Dextrose (Levaquin 750 Mg/ D5W 150 ml (Pmx)) 150 ml @ 100 mls/hr Q24H IVPB Last administered on 03/13/16 15:56; Admin Dose 100 MLS/HR; Start at 16:00 Famotidine (Pepcid) 20 mg BID PO Last administered on 03/14/16 08:35; Admin Dose 20 MG; Start 03/13/16 at 21:00 Insulin Glargine (Lantus) 20 unit QHS SC Last administered on 1/27/17at 20:59; Admin Dose 20 UNIT; Start 03/13/16 at 21:00 RODNEY ESQUIVEL MD Mar 14, 2016 09:35
[2016-03-14] MEDS ORDERED: MAGNESIUM SULFATE 2 GM/50 ML 50 ML IVPB ONE (11:00)
[2016-03-14] MEDS: METOCLOPRAMIDE 10 MG INJ IV SCH ×3 (11:38→23:24)
[2016-03-14] MEDS: ENOXAPARIN 40 MG/0.4 ML SYG SC SCH (11:46)
[2016-03-14] MEDS: ACETAMINOPHEN 325 MG TAB PO PRN ×2 (12:51→20:37)
[2016-03-14 13:10] VITALS: BP 107/54; PULSE 93; RESP 20
[2016-03-14] MEDS: LEVOFLOXACIN 750MG/D5W (PMX) 150 ML IVPB SCH (16:17)
[2016-03-14 19:16] VITALS: BP 140/65; RESP 20
[2016-03-14] MEDS: ATORVASTATIN 10 MG TAB PO SCH (20:31)
[2016-03-14] MEDS: INSULIN GLARGINE [LANtus] 3 ML PEN SC SCH (20:36)
[2016-03-15] MEDS: ONDANSETRON 4 MG INJ IV PRN (02:29)
[2016-03-15 05:17] LABS: BASOPHILS % 0.1 % (0.0-2.0); EOSINOPHILS # 0.1 10^3/ul (0.0-0.5); EOSINOPHILS % 0.4 % (0.0-7.0); HEMATOCRIT 30.6 % (37.0-47.0); HEMOGLOBIN 10.7 g/dl (12.0-16.0); LYMPHOCYTES # 1.2 10^3/ul (0.8-2.9); MEAN CORPUSCULAR HEMOGLOBIN 28.7 pg (29.0-33.0); MEAN CORPUSCULAR HGB CONC 35.1 g/dl (32.0-37.0); MEAN CORPUSCULAR VOLUME 81.8 fl (82.0-101.0); MEAN PLATELET VOLUME 9.3 fl (7.4-10.4); MONOCYTE # 0.5 10^3/ul (0.3-0.9); MONOCYTES % 3.9 % (0.0-11.0); NEUTROPHIL # 11.2 10^3/ul (1.6-7.5); NEUTROPHILS % 86.6 % (39.0-77.0); PLATELET COUNT 158 10^3/UL (140-440); RED BLOOD COUNT 3.74 10^6/ul (4.20-5.40); RED CELL DISTRIBUTION WIDTH 14.9 % (11.5-14.5); UNCORRECTED WBC 12.9 10^3/ul (4.8-10.8); WHITE BLOOD COUNT 12.9 10^3/ul (4.8-10.8)
[2016-03-15 05:21] LABS: ALBUMIN 2.7 g/dl (3.3-4.9); POTASSIUM 4.4 mmol/L (3.5-5.1)
[2016-03-15 05:24] LABS: CREATININE 0.51 mg/dl (0.44-1.00)
[2016-03-15 05:25] LABS: CALCIUM 8.2 mg/dl (8.4-10.2)
[2016-03-15 05:54] LABS: CONDITION 1; LH ANALYZER COMMENTS 1
[2016-03-15] MEDS: IMIPENEM-CILAST 500MG IV (PMX) 100 ML IVPB SCH (06:00)
[2016-03-15] MEDS: METOCLOPRAMIDE 10 MG INJ IV SCH ×2 (06:00→12:23)
[2016-03-15 07:52] VITALS: BP 187/80; RESP 20
[2016-03-15] MEDS: SOD CHLORIDE 0.9% 1,000 ML IV SCH ×3 (08:34→20:54)
[2016-03-15] MEDS: FAMOTIDINE 20 MG TAB PO SCH (08:34)
[2016-03-15] MEDS: metFORMIN 500 MG TAB PO SCH ×2 (08:36→17:45)
[2016-03-15] MEDS: INSULIN ASPART [NOVOLOG] 3 ML PEN SC SCH ×4 (08:38→21:00)
[2016-03-15] MEDS: ENOXAPARIN 40 MG/0.4 ML SYG SC SCH (08:38)
[2016-03-15] MEDS ORDERED: BENAZEPRIL 10 MG TAB PO SCH (09:00)
[2016-03-15] MEDS ORDERED: INFLUENZA VIRUS VACCINE 0.5 ML (DISPENSING) IM* ONE (09:00)
[2016-03-15] MEDS ORDERED: MAGNESIUM HYDROXIDE 30ML CUP PO PRN (10:00)
--- NOTE | 2016-03-15 12:21 | PN ---
Date/Time of Note Date/Time of Note DATE: 03/15/16 TIME: 12:13 Assessment/Plan VTE Prophylaxis VTE Prophylaxis Intervention: ambulation, SCD's Lines/Catheters IV Catheter Type (from Nrs): Peripheral IV Urinary Cath still in place: No Assessment/Plan Assessment/Plan 56 yo female with: 1. E. Coli in UTI/pyelonepritis and bacteremia sensitive to Levaquin. Will continue IV levaquin for now and d/c imipenem. WBC decreased today. If she clinical 2. Diabetes Mellitus: Metformin resumed, will increase Lantus 25 units qhs ( patient on NPH 28 AM/20 HS), may also resume Novolog 5 units QAC if needed Continue Accu-Cheks and sliding scale. A1c Still pending 3. Hypertension: May need to re-start benazepril as BP is increasing. 4. Hyperlipidemia: continue statin therapy. 5. Hypokalemia: replete Mg as well as K+ Prophylaxis: DVT ppx with SCDs and GI ppx with Pepcid Disposition: Discharge in 1-2 days to home if clinically stable. Subjective 24 Hr Interval Summary Free Text/Dictation Feeling better this AM. Had a BM this AM. Still with mild nausea. Urine (and blood) cultures demonstrate e.coli sensitive to levaquin. Exam/Review of Systems Vital Signs Vitals Vital Signs Date Time Temp Pulse Resp B/P Pulse Ox O2 Delivery O2 Flow Rate FiO2 03/15/16 07:52 98.7 89 20 187/80 98 03/14/16 13:10 Room Air Intake and Output 03/14/16 03/14/16 03/15/16 15:00 23:00 07:00 Intake Total 150 ml 2130 ml 2950 ml Output Total 800 ml Balance 150 ml 1330 ml 2950 ml Exam Constitutional: alert, oriented Head: normocephalic Eyes: nl conjunctiva ENMT: nl external ears & nose Neck: supple Respiratory: clear to auscultation Cardiovascular: regular rate and rhythm Gastrointestinal: soft Extremities: normal pulses Results Result Diagram: 03/15/16 0418 03/15/16 0418 Results 24 hrs Laboratory Tests Test 03/14/16 17:04 03/14/16 20:03 03/15/16 01:11 03/15/16 04:18 Bedside Glucose 170 201 170 Albumin 2.7 L Anion Gap 12 Basophils # 0.0 Basophils % 0.1 Blood Morphology Comment Blood Urea Nitrogen 5 L Calcium Level 8.2 L Carbon Dioxide Level 25 Chloride Level 110 Creatinine 0.51 Eosinophils # 0.1 Eosinophils % 0.4 Glucose Level 189 Hematocrit 30.6 L Hemoglobin 10.7 L Lymphocytes # 1.2 Lymphocytes % 9.0 L Mean Corpuscular Hemoglobin 28.7 L Mean Corpuscular Hemoglobin Concent 35.1 Mean Corpuscular Volume 81.8 L Mean Platelet Volume 9.3 Monocytes # 0.5 Monocytes % 3.9 Neutrophils # 11.2 H Neutrophils % 86.6 H Nucleated Red Blood Cells # 0.0 Nucleated Red Blood Cells % 0.0 Phosphorus Level 2.0 L Platelet Count 158 Potassium Level 4.4 Red Blood Count 3.74 L Red Cell Distribution Width 14.9 H Sodium Level 143 White Blood Count 12.9 #H Test 03/15/16 08:04 03/15/16 12:05 Bedside Glucose 180 147 Medications Medications Current Medications Atorvastatin Calcium 10 mg 10 mg DAILY@21 PO Last administered on 03/14/16 20: 31; Admin Dose 10 MG; Start 03/13/16 at 21:00 Sodium Chloride (NS) 1,000 ml @ 125 mls/hr Q8H IV Last administered on 08:34; Admin Dose 125 MLS/HR; Start 03/13/16 at 01:00 Enoxaparin Sodium (Lovenox) 40 mg DAILY SC Last administered on 03/15/16 08:38 ; Admin Dose 40 MG; Start 03/13/16 at 09:00 Acetaminophen (Tylenol Tab) 650 mg Q4H PRN PO pain/fever Last administered on 20:37; Admin Dose 650 MG; Start 03/13/16 at 01:00 Ondansetron HCl (Zofran Inj) 4 mg Q4H PRN IV nausea Last administered on 02:29; Admin Dose 4 MG; Start 03/13/16 at 01:00 Morphine Sulfate (morphine) 4 mg Q4H PRN IV pain Last administered on 22:12; Admin Dose 4 MG; Start 03/13/16 at 01:00 Miscellaneous Information 1 ea NOTE XX ; Start 03/13/16 at 10:00 Glucose (Glutose) 15 gm Q15M PRN PO DECREASED GLUCOSE; Start 03/13/16 at 10:00 Glucose (Glutose) 22.5 gm Q15M PRN PO DECREASED GLUCOSE; Start 03/13/16 at 10: 00 Dextrose (D50w Syringe) 25 ml Q15M PRN IV DECREASED GLUCOSE; Start 03/13/16 at 10:00 Dextrose (D50w Syringe) 50 ml Q15M PRN IV DECREASED GLUCOSE; Start 03/13/16 at 10:00 Glucagon (Glucagen) 1 mg Q15M PRN IM DECREASED GLUCOSE; Start 03/13/16 at 10:00 Glucose 15 gm 15 gm Q15M PRN BUCCAL DECREASED GLUCOSE; Start 03/13/16 at 10:00 Imipenem/ Cilastatin Sodium 100 ml @ 100 mls/hr Q6 IVPB Last administered on 06:00; Admin Dose 100 MLS/HR; Start 03/13/16 at 12:00 Levofloxacin/ Dextrose (Levaquin 750 Mg/ D5W 150 ml (Pmx)) 150 ml @ 100 mls/hr Q24H IVPB Last administered on 03/14/16 16:17; Admin Dose 100 MLS/HR; Start at 16:00 Famotidine (Pepcid) 20 mg BID PO Last administered on 03/15/16 08:34; Admin Dose 20 MG; Start 03/13/16 at 21:00 Benazepril HCl (Lotensin) 25 mg DAILY PO Last administered on 03/15/16 08:33; Admin Dose 25 MG; Start 03/15/16 at 09:00 Metoclopramide HCl (Reglan) 10 mg Q6 IV Last administered on 03/15/16 06:00; Admin Dose 10 MG; Start 03/14/16 at 12:00 Insulin Glargine (Lantus) 25 unit QHS SC Last administered on 03/14/16 20:36; Admin Dose 25 UNIT; Start 03/14/16 at 21:00 Docusate Sodium (Colace) 100 mg BID PO ; Start 03/15/16 at 21:00 Magnesium Hydroxide (Milk Of Mag) 30 ml Q6 PRN PO CONSTIPATION; Start 03/15/16 at 10:00 RODNEY ESQUIVEL MD Mar 15, 2016 12:21
[2016-03-15] MEDS ORDERED: METOCLOPRAMIDE 10 MG INJ IV PRN (16:30)
[2016-03-15] MEDS: LEVOFLOXACIN 750MG/D5W (PMX) 150 ML IVPB SCH (16:47)
[2016-03-15 19:15] VITALS: BP 187/84; RESP 18
[2016-03-15] MEDS: ATORVASTATIN 10 MG TAB PO SCH (20:54)
[2016-03-15] MEDS: INSULIN GLARGINE [LANtus] 3 ML PEN SC SCH (20:56)
[2016-03-15] MEDS: DOCUSATE SODIUM 100 MG CAP PO SCH (21:00)
[2016-03-15 21:20] VITALS: BP 182/86; PULSE 73
[2016-03-15 23:10] VITALS: BP 156/70
[2016-03-16 05:41] LABS: BASOPHILS % 0.3 % (0.0-2.0); EOSINOPHILS # 0.1 10^3/ul (0.0-0.5); EOSINOPHILS % 1.2 % (0.0-7.0); HEMATOCRIT 30.7 % (37.0-47.0); HEMOGLOBIN 10.6 g/dl (12.0-16.0); LYMPHOCYTES # 1.5 10^3/ul (0.8-2.9); LYMPHOCYTES % 17.6 % (15.0-51.0); MEAN CORPUSCULAR HEMOGLOBIN 28.3 pg (29.0-33.0); MEAN CORPUSCULAR HGB CONC 34.7 g/dl (32.0-37.0); MEAN CORPUSCULAR VOLUME 81.6 fl (82.0-101.0); MEAN PLATELET VOLUME 9.2 fl (7.4-10.4); MONOCYTE # 0.5 10^3/ul (0.3-0.9); MONOCYTES % 6.2 % (0.0-11.0); NEUTROPHIL # 6.3 10^3/ul (1.6-7.5); NEUTROPHILS % 74.7 % (39.0-77.0); PLATELET COUNT 182 10^3/UL (140-440); RED BLOOD COUNT 3.77 10^6/ul (4.20-5.40); RED CELL DISTRIBUTION WIDTH 14.9 % (11.5-14.5); UNCORRECTED WBC 8.4 10^3/ul (4.8-10.8); WHITE BLOOD COUNT 8.4 10^3/ul (4.8-10.8)
[2016-03-16 05:59] LABS: CONDITION 1; LH ANALYZER COMMENTS 1
[2016-03-16] MEDS: SOD CHLORIDE 0.9% 1,000 ML IV SCH (06:15)
[2016-03-16] MEDS: INSULIN ASPART [NOVOLOG] 3 ML PEN SC SCH ×2 (07:50→11:40)
[2016-03-16 08:02] VITALS: BP 182/84; RESP 20
[2016-03-16] MEDS: DOCUSATE SODIUM 100 MG CAP PO SCH (08:27)
[2016-03-16] MEDS: metFORMIN 500 MG TAB PO SCH (08:27)
[2016-03-16] MEDS ORDERED: BENAZEPRIL 20 MG TAB PO SCH (09:00)
[2016-03-16] MEDS ORDERED: AMLODIPINE 5 MG TAB PO SCH (09:00)
--- NOTE | 2016-03-16 10:06 | PN ---
Date/Time of Note Date/Time of Note DATE: 03/16/16 TIME: 09:55 Assessment/Plan VTE Prophylaxis VTE Prophylaxis Intervention: ambulation, LMWH Lines/Catheters IV Catheter Type (from Nrsg): Peripheral IV Urinary Cath still in place: No Assessment/Plan Assessment/Plan 56 yo female with: 1. E. Coli in UTI/pyelonepritis and bacteremia sensitive to Levaquin. WBC back to normal Will continue po Levaquin x 12 more days Probiotics D/c home 2. Diabetes Mellitus: Metformin resumed Resume NPH and premeal Novolog at home and needs referral to DM clinic Continue Accu-Cheks and sliding scale. A1c Still pending but likely high out of range 3. Hypertension: Back on Benazepril and adding Norvasc for BP control F/u with PCP within 1 week. 4. Hyperlipidemia: continue statin therapy. 5. Hypokalemia: resolved Prophylaxis: DVT ppx with SCDs and GI ppx with Pepcid Disposition: Discharge home today with PCP and Endocrinology vs DM clinic within 1 to 2 weeks. Subjective 24 Hr Interval Summary Free Text/Dictation Patient feels much better, tolerating po, WBC back to normal No flank pain and repeat Blood cx NGTD Exam/Review of Systems Vital Signs Vitals Vital Signs Date Time Temp Pulse Resp B/P Pulse Ox O2 Delivery O2 Flow Rate FiO2 03/16/16 08:02 99.2 67 20 182/84 97 03/14/16 13:10 Room Air Intake and Output 03/15/16 03/15/16 03/16/16 15:00 23:00 07:00 Intake Total 800 ml Balance 800 ml Exam Constitutional: alert, oriented, well developed Respiratory: clear to auscultation, normal air movement Cardiovascular: nl pulses, regular rate and rhythm Gastrointestinal: non-tender, soft Musculoskeletal: nl extremities to inspection Extremities: normal pulses, other (no edema, clubbing or cyanosis ) Neurological: INTER[employer] DES[employer] II-XII intact, nl mental status, nl speech, nl strength Results Result Diagram: 03/16/16 0430 03/15/16 0418 Results 24 hrs Laboratory Tests Test 03/15/16 12:05 03/15/16 17:44 03/15/16 20:51 03/16/16 04:30 Bedside Glucose 147 160 154 Basophils # 0.0 Basophils % 0.3 Blood Morphology Comment Cholesterol Level 96 L Cholesterol/HDL Ratio 5.0 Eosinophils # 0.1 Eosinophils % 1.2 HDL Cholesterol 19 L Hematocrit 30.7 L Hemoglobin 10.6 L LDL Cholesterol, Calculated 43 Lymphocytes # 1.5 Lymphocytes % 17.6 Mean Corpuscular Hemoglobin 28.3 L Mean Corpuscular Hemoglobin Concent 34.7 Mean Corpuscular Volume 81.6 L Mean Platelet Volume 9.2 Monocytes # 0.5 Monocytes % 6.2 Neutrophils # 6.3 Neutrophils % 74.7 Nucleated Red Blood Cells # 0.0 Nucleated Red Blood Cells % 0.0 Platelet Count 182 Red Blood Count 3.77 L Red Cell Distribution Width 14.9 H Triglycerides Level 168 H White Blood Count 8.4 # Test 03/16/16 07:35 Bedside Glucose 114 Medications Medications Current Medications Atorvastatin Calcium (Lipitor) 10 mg DAILY@21 PO Last administered on 20:54; Admin Dose 10 MG; Start 03/13/16 at 21:00 Acetaminophen (Tylenol Tab) 650 mg Q4H PRN PO pain/fever Last administered on 20:37; Admin Dose 650 MG; Start 03/13/16 at 01:00 Ondansetron HCl (Zofran Inj) 4 mg Q4H PRN IV nausea Last administered on 02:29; Admin Dose 4 MG; Start 03/13/16 at 01:00 Morphine Sulfate (morphine) 4 mg Q4H PRN IV pain Last administered on 22:12; Admin Dose 4 MG; Start 03/13/16 at 01:00 Miscellaneous Information 1 ea NOTE XX ; Start 03/13/16 at 10:00 Glucose (Glutose) 15 gm Q15M PRN PO DECREASED GLUCOSE; Start 03/13/16 at 10:00 Glucose (Glutose) 22.5 gm Q15M PRN PO DECREASED GLUCOSE; Start 03/13/16 at 10: 00 Dextrose (D50w Syringe) 25 ml Q15M PRN IV DECREASED GLUCOSE; Start 03/13/16 at 10:00 Dextrose (D50w Syringe) 50 ml Q15M PRN IV DECREASED GLUCOSE; Start 03/13/16 at 10:00 Glucagon (Glucagen) 1 mg Q15M PRN IM DECREASED GLUCOSE; Start 03/13/16 at 10:00 Glucose 15 gm 15 gm Q15M PRN BUCCAL DECREASED GLUCOSE; Start 03/13/16 at 10:00 Levofloxacin/ Dextrose (Levaquin 750 Mg/ D5W 150 ml (Pmx)) 150 ml @ 100 mls/hr Q24H IVPB Last administered on 03/15/16 16:47; Admin Dose 100 MLS/HR; Start at 16:00; Stop 03/16/16 at 17:00 Insulin Glargine (Lantus) 25 unit QHS SC Last administered on 03/15/16 20:56; Admin Dose 25 UNIT; Start 03/14/16 at 21:00 Docusate Sodium (Colace) 100 mg BID PO Last administered on 03/16/16 08:27; Admin Dose 100 MG; Start 03/15/16 at 21:00 Magnesium Hydroxide (Milk Of Mag) 30 ml Q6 PRN PO CONSTIPATION Last administered on 03/15/16 12:23; Admin Dose 30 ML; Start 03/15/16 at 10:00 Levofloxacin (Levaquin) 750 mg DAILY@06 PO ; Start 03/17/16 at 06:00 Metoclopramide HCl (Reglan) 10 mg Q6H PRN IV NAUSEA Last administered on 08:29; Admin Dose 10 MG; Start 03/15/16 at 16:30 Clonidine (Catapres) 0.1 mg Q6H PRN PO ELEVATED BLOOD PRESSURE>150 Last administered on 03/15/16 22:10; Admin Dose 0.1 MG; Start 03/15/16 at 22:30 Benazepril HCl (Lotensin) 40 mg BID PO Last administered on 03/16/16 08:28; Admin Dose 40 MG; Start 03/16/16 at 09:00 Amlodipine Besylate (Norvasc) 5 mg BID PO Last administered on 03/16/16 09:30 ; Admin Dose 5 MG; Start 03/16/16 at 09:00 LISANDRO QUINTERO Mar 16, 2016 10:06
--- NOTE | 2016-03-16 10:09 | PDOCDIS ---
Discharge Instructions CONDITION Patient Condition: Good HOME CARE INSTRUCTIONS: Special Diet: CARB CONTROL DIET ACTIVITY: Activity Restrictions: No Restrictions FOLLOW UP/APPOINTMENTS Appointments Follow up with PCP within 1 to 2 weeks Referral to [facility] or outpatient Endocrinology within 1 to 2 weeks LISANDRO QUINTERO Mar 16, 2016 10:09
[2016-03-16] MEDS ORDERED: BENA40TA41 PO (10:12)
[2016-03-16] MEDS ORDERED: LEVO750T25 PO (10:12)
[2016-03-16] MEDS ORDERED: LACT1CAP57 PO (10:13)
[2016-03-16] MEDS ORDERED: ZOF8 PO (10:21)
[2016-03-16] MEDS ORDERED: LACTOBACILLUS RHAMNOSUS CAP PO SCH (10:30)
[2016-03-17] MEDS ORDERED: LEVOFLOXACIN 750 MG TABLET PO SCH (06:00)
--- NOTE | 2016-03-17 07:24 | DS ---
DATE OF ADMISSION: 03/13/2016 DATE OF DISCHARGE: 03/16/2016 ADMITTING PHYSICIAN: Kel Worley MD. DISCHARGING PHYSICIAN: Monty Crowley MD CHIEF COMPLAINT ON ADMISSION: Abdominal pain. BRIEF HISTORY OF PRESENTING ILLNESS: This is a 56-year-old female with history of diabetes mellitus , hypertension who presented to the emergency department with 1-day history of abdominal pain. She was diagnosed with pyelonephritis, left kidney, and also possibly sepsis. The patient was started o n IV antibiotics and admitted to a medical/surgical bed. HOSPITAL COURSE: The patient turned out to actually have Escherichia coli bacteremia and sepsis fro m urinary tract infection with a Escherichia coli. She was placed on double gram-negative coverage on admission with imipenem and Levaquin. The sensitivities came back with bacteria sensitive to Lev aquin. Therefore, her antibiotics were tailored down to Levaquin. She became afebrile by hospital day 3. Her white blood cell count is down to normal today. She is tolerating p.o. She is ambulating . She is still having some remnant nausea but her left flank pain is completely resolved. She will be discharged home today on oral Levaquin and also probiotics. She is to follow up with her primar care physician within 1 week. She is also a diabetic, very uncontrolled. Hemoglobin A1c finally came back at 14. Her insulin regimen is to be resumed to her outpatient regimen which actually work ed fairly well here when she was compliant with her medications and on a diabetic diet. Therefore, her issue may be related to noncompliance. She does have NPH insulin along with meal insulin at [facility]. She is also on metformin. The patient will be discharged home today with outpatient followup wi th her primary care physician and also referral to the diabetic clinic through [facility] endocrinology. DISPOSITION: Discharge home. DISCHARGE CONDITION: Stable. DISCHARGE DIET: Diabetic diet. DISCHARGE ACTIVITY: Resume home activity. FOLLOWUP: The patient is to follow up with her primary care physician within 1 week and she will be referred to endocrinology or diabetic clinic as an outpatient, depending which one comes first. DISCHARGE DIAGNOSES: 1. Escherichia coli bacteremia and sepsis. 2. Escherichia coli pyelonephritis. 3. Hypertension. 4. Diabetes mellitus. 5. Hyperlipidemia. DISCHARGE MEDICATIONS 1. Benazepril 40 mg p.o. b.i.d. 2. Culturelle 1 cap p.o. b.i.d. 3. Levaquin 750 mg p.o. daily for 11 days. 4. Zofran ODT 8 mg p.o. q.6h. p.r.n. nausea or vomiting. 5. Novolin R 5 units subcutaneously q.a.c. 6. Metformin 1000 mg p.o. b.i.d. 7. NPH insulin 26 units q.a.m. and 20 units at bedtime. 8. Zocor 10 mg p.o. at bedtime. DISCONTINUED MEDICATION: A lower dose of benazepril. Dictated By: MONTY RICO/ALLEY Conf#: [id number] DID#: [id number]
== END 2016-03-16 14:06 | disposition home or self-care (01) | DRG 872 ==
LOC: E/R 19:24 → MS1 03-13
PROVIDERS: ADMIT Legal Medicine; ATTEND Legal Medicine
DX: A41.9 Sepsis, unspecified organism (principal); N10 Acute pyelonephritis; B96.20 Unspecified Escherichia coli [E. coli] as the cause of diseases classified elsewhere; I10 Essential (primary) hypertension; E11.9 Type 2 diabetes mellitus without complications; E78.5 Hyperlipidemia, unspecified; Z79.82 Long term (current) use of aspirin; E87.6 Hypokalemia
CPT/HCPCS: 36415; 71010; 74176; 80048; 80053; 80061; 80069; 81001; 81003; 82962; 83036; 83605; 83690; 83735; 84100; 84484; 85025; 85610; 85730; 87040; 87086; 90686; 93005; 96365; 96372; 96375; J0743; J1650; J1815; J1956; J2060; J2270; J2405; J2765; J3370; J3475; J7030

== ENCOUNTER 2016-08-02 22:58 | Emergency (ER) | payer OTHER ==
[~2016-08-02] VITALS: Ht 154.9 cm; Wt 86.5 kg
[~2016-08-02 22:58] MED LIST: BENA40TA41 PO; LACT1CAP57 PO; LEVO750T25 PO; METF1000 PO; NPH,100I5 SQ; SIMV10TA PO; SS SC; ZOF8 PO
[2016-08-02 23:03] VITALS: Ht 154.9 cm; Wt 86.5 kg
[2016-08-03] MEDS ORDERED: SOD CHLORIDE 0.9% 1,000 ML IV STA (00:34)
[2016-08-03] MEDS ORDERED: ONDANSETRON 4 MG INJ IV STA (00:34)
[2016-08-03] MEDS ORDERED: morphine 4 MG/ML VIAL IV STA (00:34)
--- NOTE | 2016-08-03 00:44 | ERD ---
ER Documentation Chief Complaint Date/Time DATE: 08/03/16 TIME: 00:38 Chief Complaint fever since yesterday, c/o generalize body aches HPI 56-year-old female with a history of diabetes and pyelonephritis presents the emergency department for complaints of fever, congestion, sore throat and generalized body aches since yesterday. She also reports intermittent chest pain which radiates to her back. She describes the pain as intermittent 6 out of 10 sharp pain, worse with coughing. Patient states she has been controlling her fever at home with Motrin. Last dose was at 2 PM. She describes her pain as a generalized 5 out of 10 achiness, improved with Motrin. Patient notes a history of urinary tract infections and states she is also experiencing dysuria and frequency of urination without hematuria. Patient denies any nausea, vomiting, diarrhea or abdominal pain ROS All systems reviewed and are negative except as per history of present illness. Medications Home Meds Active Scripts Guaifenesin/Pseudoephedrne HCl (Mucinex D ER 1,200-120 mg Tab) 1 Each Tab.er.12h , 2 EACH PO QAM for 7 Days, TAB Prov:MARICEL FOX PA-C 08/03/16 Acetaminophen* (Tylenol*) 325 Mg Tablet, 2 TAB PO Q6 Y for PAIN AND OR ELEVATED TEMP, #20 TAB Prov:MARICEL FOX PA-C 08/03/16 Ibuprofen* (Motrin*) 400 Mg Tab, 400 MG PO Q6, #30 TAB Prov:MARICEL FOX PA-C 08/03/16 Doxycycline Hyclate* (Doxycycline Hyclate*) 100 Mg Tablet.dr, 100 MG PO BID for 10 Days, TAB Prov:MARICEL FOX PA-C 08/03/16 Ondansetron Hcl* (Zofran*) 8 Mg Tab, 8 MG PO Q6H Y for NAUSEA AND OR VOMITING, # 30 TAB Prov:LISANDRO QUINTERO 03/16/16 Lactobacillus Rhamnosus* (Culturelle*) 1 Each Cap.sprink, 1 CAP PO BID for 14 Days, CAP Prov:LISANDRO QUINTERO 03/16/16 Benazepril Hcl* (Benazepril Hcl*) 40 Mg Tablet, 40 MG PO BID for 30 Days, TAB 2 Refills Prov:LISANDRO QUINTERO 03/16/16 Levofloxacin* (Levaquin*) 750 Mg Tablet, 750 MG PO DAILY for 11 Days, TAB Prov:LISANDRO QUINTERO 03/16/16 Reported Medications NPH, Human Insulin Isophane (Humulin N Kwikpen) 100 Unit/1 Ml Insuln.pen, UNIT SQ BID, EA 26 UNITS QAM AND 20 UNITS QHS 03/12/16 Insulin Human Regular (Novolin-R U-100) 100 Unit/Ml Soln, 5 UNITS SC AC MEALS BID, EA 03/12/16 Simvastatin* (Zocor*) 10 Mg Tablet, 10 MG PO QHS, #30 TAB 03/12/16 Metformin Hcl* (Metformin Hcl*) 1,000 Mg Tablet, 1000 MG PO WITH BREAKFAST DINNE , #60 TAB 03/12/16 Allergies Allergies: Coded Allergies: Penicillins (Unverified Allergy, Unknown, 08/02/16) PMhx/Soc History of Surgery: Yes (cecerian and gallbladder Sx) Anesthesia Reaction: No Hx Neurological Disorder: No Hx Respiratory Disorders: No Hx Cardiac Disorders: Yes (hypertension) Hx Psychiatric Problems: No Hx Miscellaneous Medical Probl: No Hx Alcohol Use: No Hx Substance Use: No Hx Tobacco Use: No Physical Exam Vitals Vital Signs Date Time Temp Pulse Resp B/P Pulse Ox O2 Delivery O2 Flow Rate FiO2 08/03/16 02:42 100.4 08/02/16 23:03 102.9 112 20 171/79 98 Physical Exam Const: Well-developed, well-nourished, no acute distress Head: Atraumatic Eyes: Normal Conjunctiva ENT: Posterior pharynx without erythema or tonsillar swelling bilaterally. Tympanic membranes nonerythematous nonbulging. Normal External Ears, Nose and Mouth. Neck: Full range of motion..~ No meningismus. Resp: Clear to auscultation bilaterally, no wheezes, rhonchi, rales Cardio: Regular rate and rhythm, no murmurs Abd: Soft, non tender, non distended. Normal bowel sounds Skin: No petechiae or rashes Back: No midline or flank tenderness Ext: No cyanosis, or edema Neur: Awake and alert Psych: Normal Mood and Affect Result Diagram: 08/03/168 08/03/168 Results 24 hrs Laboratory Tests Test 08/03/16 00:58 White Blood Count 12.710^3/ul Red Blood Count 4.2410^6/ul Hemoglobin 12.5g/dl Hematocrit 36.4% Mean Corpuscular Volume 85.8fl Mean Corpuscular Hemoglobin 29.5pg Mean Corpuscular Hemoglobin Concent 34.3g/dl Red Cell Distribution Width 12.7% Platelet Count 88384^3/UL Mean Platelet Volume 10.2fl Neutrophils % 89.5% Lymphocytes % 4.7% Monocytes % 4.1% Eosinophils % 0.6% Basophils % 0.6% Nucleated Red Blood Cells % 0.0/100WBC Neutrophils # 11.410^3/ul Lymphocytes # 0.610^3/ul Monocytes # 0.510^3/ul Eosinophils # 0.110^3/ul Basophils # 0.110^3/ul Nucleated Red Blood Cells # 0.010^3/ul Urine Color LT. YELLOW Urine Clarity CLEAR Urine pH 5.5 Urine Specific [place] 1.020 Urine Ketones TRACE Urine Nitrite NEGATIVE Urine Bilirubin NEGATIVE Urine Urobilinogen 0.2 E.U./dL Urine Leukocyte Esterase NEGATIVE Urine Microscopic RBC 5-10/HPF Urine WBC Clumps MODERATE Urine Microscopic WBC 25-50/HPF Urine Squamous Epithelial Cells MODERATE Urine Bacteria MANY Urine Mucus FEW Urine Hemoglobin 1+ Urine Glucose >=1000% Urine Total Protein TRACE Sodium Level 136mmol/L Potassium Level 4.4mmol/L Chloride Level 101mmol/L Carbon Dioxide Level 25mmol/L Anion Gap 14 Blood Urea Nitrogen 15mg/dl Creatinine 0.67mg/dl Glucose Level 337mg/dl Lactic Acid Level 1.6mmol/L Calcium Level 9.7mg/dl Total Bilirubin 0.4mg/dl Direct Bilirubin 0.00mg/dl Indirect Bilirubin 0.4mg/dl Aspartate Amino Transf (AST/SGOT) 21IU/L Alanine Aminotransferase (ALT/SGPT) 25IU/L Alkaline Phosphatase 154IU/L Troponin I < 0.012ng/ml Total Protein 8.6g/dl Albumin 4.7g/dl Globulin 3.90g/dl Albumin/Globulin Ratio 1.20 Current Medications Medications (Trade) Dose Ordered Sig/Nolvia Route PRN Reason Start Time Stop Time Status Last Admin Dose Admin Sodium Chloride (NS) 1,000 ml @ 1,000 mls/hr Q1H STAT IV 08/03/16 00:34 08/03/16 01:33 DC 08/03/16 01:31 Morphine Sulfate (morphine) 4 mg ONCE STAT IV 08/03/16 00:34 08/03/16 00:38 DC 08/03/16 01:31 Ondansetron HCl (Zofran Inj) 4 mg ONCE STAT IV 08/03/16 00:34 08/03/16 00:38 DC 08/03/16 01:31 Acetaminophen 650 mg 650 mg ONCE ONCE PO 08/03/16 01:00 08/03/16 01:01 DC 08/03/16 01:31 Sodium Chloride (NS) 1,000 ml @ 1,000 mls/hr Q1H ONCE IV 08/03/16 02:00 08/03/16 02:59 08/03/16 02:10 Procedures/MDM PROCEDURE: XR Chest. CLINICAL INDICATION: Abdominal pain TECHNIQUE: AP Portable chest. COMPARISON: 03/12/2016 FINDINGS: The cardiomediastinal silhouette is normal. The lungs are clear. The osseous structures are unremarkable. IMPRESSION: No acute findings. RPTAT: HIKT .Emeka Suazo MD, MD Date Time Electronically viewed and signed by .Emeka Suazo MD, MD on 08/03/2016 02:05 .T/ CC: MARICEL FOX PA-C 56-year-old female with a history of diabetes presents emergency department complaining of fever, congestion, sore throat, body aches, chest and back pain which began yesterday. Upon arrival patient presented with a fever of 102.9 and was mildly tachycardic at 112. Patient's blood pressure was elevated slightly at 171/79. Patient was not hypoxic. (Exam) ENT exam was unremarkable for any major swelling, erythema, or respiratory distress. Lactic acid recorded at 1.6 Blood cultures pending CBC showed evidence of slightly elevated white blood cells likely due to acute stress reaction from her viral syndrome. Otherwise no evidence of severe systemic infection or severe anemia. CMP with evidence of hyperglycemia at 337. Patient with history of insulin- dependent diabetes. Fluids administered while in the emergency department. Otherwise CMP showed no evidence of electrolyte abnormalities, severe acidosis, alkalosis, renal failure, or liver disease. Lipase showed no evidence of acute pancreatitis. Troponin negative UA showed 1+ hemoglobin and trace ketones, otherwise no evidence of acute infection. Urine cultures pending Chest X-ray 1V Interpreted by radiologist: Soft Tissue: No acute abnormalities Bones: No acute abnormalities Mediastinum/Cardiac Silhouette/Lungs: No acute abnormalities EKG: Rate/Rhythm: Sinus tachycardia at 105 bpm QRS, ST, T-waves: No changes consistent w/ acute ischemia Impression: No evidence of ischemia or arrhythmia Fever well controlled while in the emergency department. The patient's clinical presentation is very consistent with acute sinusitis and dysuria. The patient does not exhibit any clinical signs or symptoms concerning for serious bacterial infection or systemic illness. Based on history and clinical exam, imaging studies, and laboratory findings the patient does not appear to have evidence of pneumonia, strep pharyngitis, urinary tract infection, bacteremia, sepsis, or meningitis. I believe it would be appropriate for symptom control, and close outpatient primary care follow-up. Based on patient's history of present illness and physical examination the decision was made to discharge. The patient was re-evaluated after ED treatment and stabilizing measures, and symptoms have improved. There is no evidence of life threatening injuries or illnesses at this time. On re-examination, patient resting in no distress, stable vital signs, reports feeling better and safe for discharge with outpatient follow up with PMD in 1-2 days. Patient given return precautions. Departure Diagnosis: Primary Impression: Fever Fever type: unspecified Qualified Code: R50.9 - Fever, unspecified fever cause Additional Impressions: Sinus congestion Body aches Chest discomfort Dysuria MARICEL FOX PA-C Aug 03, 2016 00:44
[2016-08-03] MEDS ORDERED: ACETAMINOPHEN 325 MG TAB PO ONE (01:00)
[2016-08-03 01:09] LABS: ADD SCAN DIFF NO
[2016-08-03 01:12] LABS: BASOPHIL # 0.1 10^3/ul (0.0-0.1); BASOPHILS % 0.6 % (0.0-2.0); EOSINOPHILS # 0.1 10^3/ul (0.0-0.5); EOSINOPHILS % 0.6 % (0.0-7.0); HEMATOCRIT 36.4 % (37.0-47.0); HEMOGLOBIN 12.5 g/dl (12.0-16.0); LYMPHOCYTES # 0.6 10^3/ul (0.8-2.9); LYMPHOCYTES % 4.7 % (15.0-51.0); MEAN CORPUSCULAR HEMOGLOBIN 29.5 pg (29.0-33.0); MEAN CORPUSCULAR HGB CONC 34.3 g/dl (32.0-37.0); MEAN CORPUSCULAR VOLUME 85.8 fl (82.0-101.0); MEAN PLATELET VOLUME 10.2 fl (7.4-10.4); MONOCYTE # 0.5 10^3/ul (0.3-0.9); MONOCYTES % 4.1 % (0.0-11.0); NEUTROPHIL # 11.4 10^3/ul (1.6-7.5); NEUTROPHILS % 89.5 % (39.0-77.0); PLATELET COUNT 275 10^3/UL (140-415); RED BLOOD COUNT 4.24 10^6/ul (4.20-5.40); RED CELL DISTRIBUTION WIDTH 12.7 % (11.5-14.5); WHITE BLOOD COUNT 12.7 10^3/ul (4.8-10.8)
[2016-08-03 01:16] LABS: ADD UMIC YES; UR BILIRUBIN (Dip) NEGATIVE (NEGATIVE); UR BLOOD (Dip) 1+ (NEGATIVE); UR CLARITY CLEAR (CLEAR); UR COLOR LT. YELLOW (YELLOW); UR GLUCOSE (Dip) >=1000 % (NEGATIVE); UR KETONES (Dip) TRACE (NEGATIVE); UR LEUKOCYTE ESTERASE (Dip) NEGATIVE (NEGATIVE); UR NITRITE (Dip) NEGATIVE (NEGATIVE); UR TOTAL PROTEIN (Dip) TRACE (NEGATIVE); UR UROBILINOGEN (Dip) 0.2 E.U./dL (0.1-1.0)
[2016-08-03 01:42] LABS: ALANINE AMINOTRANSFERASE 25 IU/L (13-69); ALBUMIN 4.7 g/dl (3.3-4.9); ALKALINE PHOSPHATASE 154 IU/L (42-121); ANION GAP 14 (8-16); ASPARTATE AMINO TRANSFERASE 21 IU/L (15-46); BILIRUBIN,INDIRECT 0.4 mg/dl (0-1.1); BILIRUBIN,TOTAL 0.4 mg/dl (0.2-1.3); BLOOD UREA NITROGEN 15 mg/dl (7-20); CALCIUM 9.7 mg/dl (8.4-10.2); CARBON DIOXIDE 25 mmol/L (21-31); CHLORIDE 101 mmol/L (97-110); CREATININE 0.67 mg/dl (0.44-1.00); GLUCOSE 337 mg/dl (70-220); POTASSIUM 4.4 mmol/L (3.5-5.1); SODIUM 136 mmol/L (135-144); TOTAL PROTEIN 8.6 g/dl (6.1-8.1)
[2016-08-03 01:43] LABS: UR BACTERIA MANY; UR SQUAMOUS EPITHELIAL CELL MODERATE
[2016-08-03 01:44] LABS: UR MUCUS FEW
[2016-08-03 01:56] LABS: TROPONIN-I < 0.012 ng/ml (0.00-0.12)
[2016-08-03] MEDS ORDERED: SOD CHLORIDE 0.9% 1,000 ML IV ONE (02:00)
--- NOTE | 2016-08-03 02:06 | RADRPT ---
PROCEDURE: XR Chest. CLINICAL INDICATION: Abdominal pain TECHNIQUE: AP Portable chest. COMPARISON: 03/12/2016 FINDINGS: The cardiomediastinal silhouette is normal. The lungs are clear. The osseous structures are unrema rkable. IMPRESSION: No acute findings. RPTAT: HIKT .Emeka Suazo MD, MD Date Time Electronically viewed and signed by .Emeka Suazo MD, MD on 08/03/2016 02:05 .T/
[2016-08-03] MEDS ORDERED: ACET325T33 PO (02:40)
[2016-08-03] MEDS ORDERED: GUAI-106 PO (02:40)
[2016-08-03] MEDS ORDERED: IBUP400T22 PO (02:40)
[2016-08-03] MEDS ORDERED: DOXY100T20 PO (02:40)
[2016-08-03 02:53] VITALS: BP 137/65; PULSE 102; TEMP 100.5
== END 2016-08-03 03:02 | disposition home or self-care (01) ==
LOC: FTE 22:58
DX: R50.9 Fever, unspecified (principal); R09.81 Nasal congestion; R07.9 Chest pain, unspecified; R30.0 Dysuria; I10 Essential (primary) hypertension; E11.9 Type 2 diabetes mellitus without complications; Z79.4 Long term (current) use of insulin; Z79.84 Long term (current) use of oral hypoglycemic drugs
CPT/HCPCS: 71010; 80053; 81001; 83605; 84484; 85025; 87040; 87086; 93005; J2270; J2405; J7030; Z7610; 96374; 96375

== ENCOUNTER 2017-04-24 18:31 | Emergency (ER) | END 2017-04-24 19:20 | disposition left against medical advice (07) ==

== ENCOUNTER 2017-04-24 21:50 | Emergency (ER) | END 2017-04-25 06:02 | disposition home or self-care (01) ==

== ENCOUNTER 2017-12-08 19:55 | Emergency (ER) | END 2017-12-08 22:32 | disposition home or self-care (01) ==

== ENCOUNTER 2018-06-20 18:58 | Emergency (ER) | payer MEDICAID ==
[~2018-06-20] VITALS: Ht 152.4 cm; Wt 69.2 kg
[~2018-06-20 18:58] MED LIST changes: +ACET325T33 PO; +AZIT250T PO; -BENA40TA41 PO; +BENA40TA56 PO; +DOXY100T20 PO; +ERYT1OIN6 LEFT EYE; +GUAI-106 PO; +IBUP-1542 PO; +IBUP-1561 PO; -METF1000 PO; +METF100010 PO; +ONDA4TAB14 PO; +PRED5DRO20 LEFT EYE
[2018-06-20 19:27] VITALS: Ht 152.4 cm; Wt 69.2 kg
[2018-06-20] MEDS ORDERED: SOD CHLORIDE 0.9% 1,000 ML IV ONE (23:00)
[2018-06-21] MEDS ORDERED: LEVOFLOXACIN 500MG/D5W (PMX) 100 ML IVPB ONE (01:00)
[2018-06-21] MEDS ORDERED: CIPR500T4 PO (02:03)
[2018-06-21] MEDS ORDERED: MTF1000T PO (02:03)
[2018-06-21] MEDS ORDERED: HUM100VI13 SQ (02:03)
--- NOTE | 2018-06-21 02:08 | ERD ---
ER Documentation Chief Complaint Chief Complaint R lower pelvic pain X 1 wk, flu symptoms X 1 wk ROS All systems reviewed and are negative except as per history of present illness. Medications Home Meds Active Scripts Ciprofloxacin Hcl* (Ciprofloxacin Hcl*) 500 Mg Tablet, 500 MG PO BID for uti for 7 Days, #14 TAB Prov:JOY BRASHER DO 06/21/18 Metformin* (Glucophage*) 1,000 Mg Tablet, 1000 MG PO BID for diabetes, #60 TAB Prov:JOY BRASHER DO 06/21/18 Insulin NPH Hum/Reg Insulin Hm (Relion Novolin 70-30 Vial) 100 Unit/1 Ml Vial, 10 UNIT SQ BID for diabetes, #2 VIAL Prov:JOY BRASHER DO 06/21/18 Ibuprofen* (Motrin*) 600 Mg Tab, 600 MG PO Q6, #30 TAB Prov:FAITH FOUNTAIN PA-C 12/08/17 Azithromycin* (Zithromax*) 250 Mg Tablet, 250 MG PO .ZPACK DIRECTED, #6 TAB TAKE 500 MG (2 TABS) THE FIRST DAY THEN 250 MG (1 TAB) DAYS 2-5 Prov:FAITH FOUNTAIN PA-C 12/08/17 Ondansetron (Ondansetron Odt) 4 Mg Tab.rapdis, 4 MG PO Q6H PRN for NAUSEA AND/OR VOMITING, #10 TAB Prov:FAITH FOUNTAIN PA-C 12/08/17 Erythromycin Base (Erythromycin) 1 Gm Oint...g., 1 APPLIC LEFT EYE QID for 7 Days Prov:PATY MCMAHON MD 04/25/17 Prednisolone Acetate* (Pred Forte*) 5 Ml Susp, 1 DROP LEFT EYE QID for 7 Days, #1 EA Prov:PATY MCMAHON MD 04/25/17 Guaifenesin/Pseudoephedrne HCl (Mucinex D ER 1,200-120 mg Tab) 1 Each Tab .er.12h, 2 EACH PO QAM for 7 Days, TAB Prov:MARICEL FOX PA-C 08/03/16 Acetaminophen* (Tylenol*) 325 Mg Tablet, 2 TAB PO Q6 PRN for PAIN AND OR ELEVATED TEMP, #20 TAB Prov:MARICEL FOX PA-C 08/03/16 Ibuprofen* (Motrin*) 400 Mg Tab, 400 MG PO Q6, #30 TAB Prov:MARICEL FOX PA-C 08/03/16 Doxycycline Hyclate* (Doxycycline Hyclate*) 100 Mg Tablet.dr, 100 MG PO BID for 10 Days, TAB Prov:MARICEL FOX PA-C 08/03/16 Ondansetron Hcl* (Zofran*) 8 Mg Tab, 8 MG PO Q6H PRN for NAUSEA AND OR VOMITING, #30 TAB Prov:LISANDRO QUINTERO 03/16/16 Lactobacillus Rhamnosus* (Culturelle*) 1 Each Cap.sprink, 1 CAP PO BID for 14 Days, CAP Prov:LISANDRO QUINTERO 03/16/16 Benazepril Hcl* (Benazepril Hcl*) 40 Mg Tablet, 40 MG PO BID for 30 Days, TAB 2 Refills Prov:LISANDRO QUINTERO 03/16/16 Levofloxacin* (Levaquin*) 750 Mg Tablet, 750 MG PO DAILY for 11 Days, TAB Prov:LISANDRO QUINTERO 03/16/16 Reported Medications NPH, Human Insulin Isophane (Humulin N Kwikpen) 100 Unit/1 Ml Insuln.pen, UNIT SQ BID, EA 26 UNITS QAM AND 20 UNITS QHS 03/12/16 Insulin Human Regular (Novolin-R U-100) 100 Unit/Ml Soln, 5 UNITS SC AC MEALS BID, EA 03/12/16 Simvastatin* (Zocor*) 10 Mg Tablet, 10 MG PO QHS, #30 TAB 03/12/16 Metformin Hcl* (Metformin Hcl*) 1,000 Mg Tablet, 1000 MG PO WITH BREAKFAST DINNE, #60 TAB 03/12/16 Allergies Allergies: Coded Allergies: Penicillins (Unverified Allergy, Unknown, 08/02/16) PMhx/Soc History of Surgery: No (hysterectomy, cholecystectomy) Anesthesia Reaction: No Hx Neurological Disorder: No Hx Respiratory Disorders: No Hx Cardiac Disorders: Yes (Hypertension, hyperlipidemia) Hx Psychiatric Problems: No Hx Miscellaneous Medical Probl: No Hx Alcohol Use: No Hx Substance Use: No Hx Tobacco Use: No Smoking Status: Never smoker Physical Exam Vitals Vital Signs Date Temp Pulse Resp B/P (MAP) Pulse Ox O2 O2 Flow FiO2 Time Delivery Rate 06/20/18 99.7 94 18 185/85 96 19:27 (118) Physical Exam Const: No acute distress Head: Atraumatic Eyes: Normal Conjunctiva ENT: Normal External Ears, Nose and Mouth. Neck: Full range of motion. No meningismus. Resp: Clear to auscultation bilaterally Cardio: Regular rate and rhythm, no murmurs Abd: Soft, non tender, non distended. Normal bowel sounds Skin: No petechiae or rashes Back: No midline or flank tenderness Ext: No cyanosis, or edema Neur: Awake and alert Psych: Normal Mood and Affect Result Diagram: 06/20/18215806/20/182158 Results 24 hrs Laboratory Tests Test 06/20/18 21:59 06/21/18 01:20 06/21/18 01:46 White Blood Count 8.6 10^3/ul Red Blood Count 4.42 10^6/ul Hemoglobin 12.3 g/dl Hematocrit 36.9 % Mean Corpuscular Volume 83.5 fl Mean Corpuscular Hemoglobin 27.8 pg Mean Corpuscular Hemoglobin Concent 33.3 g/dl Red Cell Distribution Width 12.0 % Platelet Count 322 10^3/UL Mean Platelet Volume 9.8 fl Immature Granulocytes % 0.300 % Neutrophils % 66.5 % Lymphocytes % 23.7 % Monocytes % 7.4 % Eosinophils % 1.3 % Basophils % 0.8 % Nucleated Red Blood Cells % 0.0 /100WBC Immature Granulocytes # 0.030 10^3/ul Neutrophils # 5.7 10^3/ul Lymphocytes # 2.0 10^3/ul Monocytes # 0.6 10^3/ul Eosinophils # 0.1 10^3/ul Basophils # 0.1 10^3/ul Nucleated Red Blood Cells # 0.0 10^3/ul Urine Color RED Urine Clarity CLOUDY Urine pH 5.0 Urine Specific [place] 1.024 Urine Ketones 1+ mg/dL Urine Nitrite POSITIVE mg/dL Urine Bilirubin NEGATIVE mg/dL Urine Urobilinogen NEGATIVE mg/dL Urine Leukocyte Esterase 3+ Venancio/ul Urine Microscopic RBC 25 /HPF Urine Microscopic WBC > 182 /HPF Urine Squamous Epithelial Cells FEW /HPF Urine Bacteria MODERATE /HPF Urine Mucus FEW /HPF Urine Hemoglobin 1+ mg/dL Urine Glucose 3+ mg/dL Urine Total Protein 1+ mg/dl Sodium Level 131 mmol/L Potassium Level 4.9 mmol/L Chloride Level 94 mmol/L Carbon Dioxide Level 25 mmol/L Anion Gap 12 Blood Urea Nitrogen 21 mg/dl Creatinine 0.69 mg/dl Est Glomerular Filtrat Rate mL/min > 60 mL/min Glucose Level 521 mg/dl Calcium Level 9.9 mg/dl Total Bilirubin 0.4 mg/dl Direct Bilirubin 0.00 mg/dl Indirect Bilirubin 0.4 mg/dl Aspartate Amino Transf (AST/SGOT) 14 IU/L Alanine Aminotransferase (ALT/SGPT) 6 IU/L Alkaline Phosphatase 160 IU/L Total Protein 8.1 g/dl Albumin 4.0 g/dl Globulin 4.10 g/dl Albumin/Globulin Ratio 0.97 Lipase 65 U/L Bedside Glucose 378 mg/dL 371 mg/dL Current Medications Medications Dose Sig/Nolvia Start Time Status Last (Trade) Ordered Route PRN Stop Time Admin Dose Reason Admin Sodium 1,000 ml @ Q1H ONCE 06/20/18 DC 06/20/18 Chloride 1,000 mls/hr IV 23:00 06/20/18 22:55 23:59 100 ml @ ONCE ONCE 06/21/18 DC 06/21/18 Levofloxacin/ 100 mls/hr IVPB 01:00 06/21/18 00:54 Dextrose 01:59 Departure Diagnosis: Primary Impression: UTI (urinary tract infection) Urinary tract infection type: site unspecified Hematuria presence: without hematuria Qualified Codes: N39.0 - Urinary tract infection, site not specified Additional Impression: Hyperglycemia Condition: Fair Patient Instructions: Hyperglycemia (High Blood Sugar), Understanding Urinary Tract Infections (UTIs), Diabetes: Living Your Life Referrals: [facility] YOU HAVE RECEIVED A MEDICAL SCREENING EXAM AND THE RESULTS INDICATE THAT YOU DO NOT HAVE A CONDITION THAT REQUIRES URGENT TREATMENT IN THE EMERGENCY DEPARTMENT. FURTHER EVALUATION AND TREATMENT OF YOUR CONDITION CAN WAIT UNTIL YOU ARE SEEN IN YOUR DOCTORS OFFICE WITHIN THE NEXT 1-2 DAYS. IT IS YOUR RESPONSIBILITY TO MAKE AN APPOINTMENT FOR FOLOW-UP CARE. IF YOU HAVE A PRIMARY DOCTOR --you should call your primary doctor and schedule an appointment IF YOU DO NOT HAVE A PRIMARY DOCTOR YOU CAN CALL OUR PHYSICIAN REFERRAL HOTLINE AT IF YOU CAN NOT AFFORD TO SEE A PHYSICIAN YOU CAN CHOSE FROM THE FOLLOWING [facility] [address] [facility]. [facility] [address] [facility] [address] [facility] [address] [facility]. [facility] [address]. [facility] [address] Additional Instructions: Llame al doctor MAANA y adelia maliha BRIANNA PARA DENTRO DE 1-2 ARELLANO.Dgale a la secretaria que nosotros le instruimos hacer esta brianna.Avise o llame si paulino condicin se empeora antes de la brianna. Regresa aqui si peor o no mejor. JOY BRASHER DO June 21, 2018 02:08
[2018-06-21 02:16] VITALS: BP 155/72; PULSE 81; RESP 18
== END 2018-06-21 02:18 | disposition home or self-care (01) ==
LOC: FTE 18:58
DX: N39.0 Urinary tract infection, site not specified (principal); R73.9 Hyperglycemia, unspecified; I10 Essential (primary) hypertension; Z79.4 Long term (current) use of insulin
CPT/HCPCS: 36415; 80053; 81001; 82962; 83690; 85025; 96374; J1956; J7030; Z7502

== ENCOUNTER 2018-06-27 01:12 | Emergency (ER) | payer MEDICAID ==
[~2018-06-27] VITALS: Ht 152.4 cm; Wt 68.5 kg
[~2018-06-27 01:12] MED LIST changes: +CIPR500T4 PO; +HUM100VI13 SQ; +MTF1000T PO
[2018-06-27 01:15] VITALS: Ht 152.4 cm; Wt 68.5 kg
[2018-06-27] MEDS ORDERED: ONDANSETRON 4 MG INJ IV STA ×2 (01:21→02:57)
[2018-06-27] MEDS ORDERED: morphine 4 MG/ML VIAL IV STA (01:21)
[2018-06-27] MEDS ORDERED: HYDROmorphONE 2 MG/ML SYG IV STA (02:57)
[2018-06-27] MEDS ORDERED: CEFTRIAXONE 1 GM/50 ML (PMX) 50 ML IVPB ONE (04:30)
[2018-06-27] MEDS ORDERED: PHEN-716 PO (04:38)
[2018-06-27] MEDS ORDERED: CEPH-443 PO (05:19)
[2018-06-27 05:30] VITALS: BP 148/70; PULSE 89; RESP 17
--- NOTE | 2018-06-30 23:11 | ERD ---
ER Documentation Chief Complaint Chief Complaint llq abd pain with n/v xtoday HPI This is a 58-year-old female who presents with left lower quadrant pain. Patient was seen here about a week ago, and was started on empiric antibiotic for UTI with ciprofloxacin. She presents today, with recurrent dysuria, she has no fever, no abdominal pain, she has a history of diabetes. She denies chest pain or shortness of breath. ROS All systems reviewed and are negative except as per history of present illness. Medications Home Meds Active Scripts Insulin Glargine* (Lantus*) 100 Unit/Ml Soln, 30 UNIT SC DAILY for 60 Days, #1 VIAL 5 Refills Prov:EILEEN MUNGUIA MD 06/29/18 Simvastatin* (Zocor*) 10 Mg Tablet, 10 MG PO QHS, #90 TAB Prov:EILEEN MUNGUIA MD 06/29/18 Metformin Hcl* (Metformin Hcl*) 1,000 Mg Tablet, 1000 MG PO WITH BREAKFAST DINNE, #120 TAB 5 Refills Prov:EILEEN MUNGUIA MD 06/29/18 Sulfamethoxazole/Trimethoprim* (Bactrim Ds* Tablet) 1 Each Tablet, 1 TAB PO BID for 4 Days, #8 TAB Prov:EILEEN MUNGUIA MD 06/29/18 Benazepril Hcl* (Benazepril Hcl*) 40 Mg Tablet, 40 MG PO BID for 30 Days, TAB 2 Refills Prov:LISANDRO QUINTERO F 03/16/16 Discontinued Reported Medications NPH, Human Insulin Isophane (Humulin N Kwikpen) 100 Unit/1 Ml Insuln.pen, UNIT SQ BID, EA 26 UNITS QAM AND 20 UNITS QHS 03/12/16 Insulin Human Regular (Novolin-R U-100) 100 Unit/Ml Soln, 5 UNITS SC AC MEALS BID, EA 03/12/16 Discontinued Scripts Cephalexin* (Keflex*) 500 Mg Capsule, 500 MG PO QID for 7 Days, CAP Prov:SONIA RIZO MD 06/27/18 Phenazopyridine Hcl* (Phenazopyridine Hcl*) 100 Mg Tablet, 100 MG PO TID for 7 Days, TAB Prov:SONIA RIZO MD 06/27/18 Ciprofloxacin Hcl* (Ciprofloxacin Hcl*) 500 Mg Tablet, 500 MG PO BID for uti for 7 Days, #14 TAB Prov:JOY BRASHER DO 06/21/18 Metformin* (Glucophage*) 1,000 Mg Tablet, 1000 MG PO BID for diabetes, #60 TAB Prov:JOY BRASHER DO 06/21/18 Insulin NPH Hum/Reg Insulin Hm (Relion Novolin 70-30 Vial) 100 Unit/1 Ml Vial, 10 UNIT SQ BID for diabetes, #2 VIAL Prov:JOY BRASHER DO 06/21/18 Ibuprofen* (Motrin*) 600 Mg Tab, 600 MG PO Q6, #30 TAB Prov:FAITH FOUNTAIN PA-C 12/08/17 Azithromycin* (Zithromax*) 250 Mg Tablet, 250 MG PO .ZPACK DIRECTED, #6 TAB TAKE 500 MG (2 TABS) THE FIRST DAY THEN 250 MG (1 TAB) DAYS 2-5 Prov:FAITH FOUNTAIN PA-C 12/08/17 Ondansetron (Ondansetron Odt) 4 Mg Tab.rapdis, 4 MG PO Q6H PRN for NAUSEA AND/OR VOMITING, #10 TAB Prov:FAITH FOUNTAIN PA-C 12/08/17 Erythromycin Base (Erythromycin) 1 Gm Oint...g., 1 APPLIC LEFT EYE QID for 7 Days Prov:PATY MCMAHON MD 04/25/17 Prednisolone Acetate* (Pred Forte*) 5 Ml Susp, 1 DROP LEFT EYE QID for 7 Days, #1 EA Prov:PATY MCMAHON MD 04/25/17 Guaifenesin/Pseudoephedrne HCl (Mucinex D ER 1,200-120 mg Tab) 1 Each Tab.er.12h, 2 EACH PO QAM for 7 Days, TAB Prov:MARICEL FOX PA-C 08/03/16 Acetaminophen* (Tylenol*) 325 Mg Tablet, 2 TAB PO Q6 PRN for PAIN AND OR ELEVATED TEMP, #20 TAB Prov:MARICEL FOX PA-C 08/03/16 Ibuprofen* (Motrin*) 400 Mg Tab, 400 MG PO Q6, #30 TAB Prov:MARICEL FOX PA-C 08/03/16 Doxycycline Hyclate* (Doxycycline Hyclate*) 100 Mg Tablet.dr, 100 MG PO BID for 10 Days, TAB Prov:MARICEL FOX PA-C 08/03/16 Ondansetron Hcl* (Zofran*) 8 Mg Tab, 8 MG PO Q6H PRN for NAUSEA AND OR VOMITING, #30 TAB Prov:LISANDRO QUINTERO 03/16/16 Lactobacillus Rhamnosus* (Culturelle*) 1 Each Cap.sprink, 1 CAP PO BID for 14 Days, CAP Prov:LISANDRO QUINTERO 03/16/16 Levofloxacin* (Levaquin*) 750 Mg Tablet, 750 MG PO DAILY for 11 Days, TAB Prov:LISANDRO QUINTERO 03/16/16 Allergies Allergies: Coded Allergies: Penicillins (Unverified Allergy, Unknown, 08/02/16) PMhx/Soc History of Surgery: No (hysterectomy, cholecystectomy) Anesthesia Reaction: No Hx Neurological Disorder: No Hx Respiratory Disorders: No Hx Cardiac Disorders: Yes (Hypertension, hyperlipidemia) Hx Psychiatric Problems: No Hx Miscellaneous Medical Probl: No Hx Alcohol Use: No Hx Substance Use: No Hx Tobacco Use: No Smoking Status: Unknown if ever smoked Physical Exam Vitals Vital Signs Date Temp Pulse Resp B/P (MAP) Pulse Ox O2 O2 Flow FiO2 Time Delivery Rate 06/27/18 89 17 148/70 98 Room Air 05:30 (96) 06/27/18 87 16 148/71 100 Nasal 2.0 05:00 (96) Cannula 06/27/18 87 17 139/71 100 Nasal 2.0 04:00 (93) Cannula 06/27/18 88 15 124/61 100 Nasal 2.0 03:00 (82) Cannula 06/27/18 83 16 145/66 98 Room Air 02:30 (92) 06/27/18 98.5 95 19 173/81 100 Room Air 01:20 (111) 06/27/18 98.3 91 19 240/105 98 01:15 (150) Physical Exam Const: Afebrile, nontoxic, well-appearing Head: Atraumatic Eyes: Normal Conjunctiva ENT: Normal External Ears, Nose and Mouth. Neck: Full range of motion. No meningismus. Resp: Clear to auscultation bilaterally, no wheezes rales or rhonchi Cardio: Regular rate and rhythm, no murmurs Abd: Soft, non tender, non distended, no rebound or guarding, no McBurney's point tenderness. Normal bowel sounds Skin: No petechiae or rashes Back: No midline or flank tenderness Ext: No cyanosis, or edema Neur: Awake and alert Psych: Normal Mood and Affect Result Diagram: 06/27/185 06/27/18 0205 Results 24 hrs Laboratory Tests Test 06/27/18 02:00 06/27/18 02:05 Bedside Glucose 340 mg/dL White Blood Count 8.0 10^3/ul Red Blood Count 4.48 10^6/ul Hemoglobin 12.5 g/dl Hematocrit 37.0 % Mean Corpuscular Volume 82.6 fl Mean Corpuscular Hemoglobin 27.9 pg Mean Corpuscular Hemoglobin Concent 33.8 g/dl Red Cell Distribution Width 12.3 % Platelet Count 327 10^3/UL Mean Platelet Volume 9.6 fl Immature Granulocytes % 0.500 % Neutrophils % 73.8 % Lymphocytes % 18.8 % Monocytes % 4.2 % Eosinophils % 1.7 % Basophils % 1.0 % Nucleated Red Blood Cells % 0.0 /100WBC Immature Granulocytes # 0.040 10^3/ul Neutrophils # 5.9 10^3/ul Lymphocytes # 1.5 10^3/ul Monocytes # 0.3 10^3/ul Eosinophils # 0.1 10^3/ul Basophils # 0.1 10^3/ul Nucleated Red Blood Cells # 0.0 10^3/ul Prothrombin Time 13.5 Sec Prothrombin Time Ratio 1.1 INR International Normalized Ratio 1.02 Urine Color YELLOW Urine Clarity CLOUDY Urine pH 6.0 Urine Specific [place] 1.018 Urine Ketones NEGATIVE mg/dL Urine Nitrite NEGATIVE mg/dL Urine Bilirubin NEGATIVE mg/dL Urine Urobilinogen NEGATIVE mg/dL Urine Leukocyte Esterase 3+ Venancio/ul Urine Microscopic RBC 22 /HPF Urine Microscopic WBC 63 /HPF Urine Squamous Epithelial Cells FEW /HPF Urine Bacteria MODERATE /HPF Urine Mucus FEW /HPF Urine Yeast (Budding) FEW /HPF Urine Hemoglobin 1+ mg/dL Urine Glucose 3+ mg/dL Urine Total Protein 1+ mg/dl Sodium Level 138 mmol/L Potassium Level 3.7 mmol/L Chloride Level 101 mmol/L Carbon Dioxide Level 22 mmol/L Anion Gap 15 Blood Urea Nitrogen 22 mg/dl Creatinine 0.95 mg/dl Est Glomerular Filtrat Rate mL/min > 60 mL/min Glucose Level 365 mg/dl Calcium Level 9.6 mg/dl Total Bilirubin 0.3 mg/dl Direct Bilirubin 0.00 mg/dl Indirect Bilirubin 0.3 mg/dl Aspartate Amino Transf (AST/SGOT) 19 IU/L Alanine Aminotransferase (ALT/SGPT) 13 IU/L Alkaline Phosphatase 120 IU/L Troponin I < 0.012 ng/ml Total Protein 7.8 g/dl Albumin 3.9 g/dl Globulin 3.90 g/dl Albumin/Globulin Ratio 1.00 Lipase 76 U/L Current Medications Medications Dose Sig/Nolvia Start Time Status Last (Trade) Ordered Route PRN Stop Time Admin Dose Reason Admin Morphine 4 mg ONCE STAT 06/27/18 DC 06/27/18 Sulfate IV 01:21 02:03 (morphine) 06/27/18 01:35 Ondansetron 4 mg ONCE STAT 06/27/18 DC 06/27/18 HCl (Zofran IV 01:21 02:03 Inj) 06/27/18 01:35 1 mg ONCE STAT 06/27/18 DC 06/27/18 Hydromorphone IV 02:57 03:20 HCl 06/27/18 03:03 (Dilaudid) Ondansetron 4 mg ONCE STAT 06/27/18 DC 06/27/18 HCl (Zofran IV 02:57 03:19 Inj) 06/27/18 03:03 Ceftriaxone 50 ml @ ONCE ONCE 06/27/18 DC 06/27/18 Sodium 100 mls/hr IVPB 04:30 05:03 06/27/18 04:59 Procedures/MDM This is a 58-year-old female who presents for evaluation of left-sided abdominal pain. On exam the patient was afebrile and nontoxic-appearing, she is noted to be hyperglycemic, with no evidence of diabetic ketoacidosis, she had no evidence of sepsis or severe sepsis, her CT abdomen pelvis, showed signs of pyelonephritis, otherwise no sign of intra-abdominal infection. She was treated with IV ceftriaxone, and IV fluids, and on reevaluation, she felt significantly better. She had no nausea vomiting and was tolerating oral intake, she did not have a previous urine culture, prior to ceftriaxone, urine culture was taken this time. I discussed findings with patient and spouse, who felt comfortable with discharge plan of care, provided with a prescription for Keflex, and at dis charge the patient was afebrile, well-appearing and in no acute distress. EKG: Rate/Rhythm: Normal Sinus Rhythm QRS, ST, T-waves: No changes consistent w/ acute ischemia Impression: No evidence of ischemia or arrhythmia Departure Diagnosis: Primary Impression: Pyelonephritis Condition: Stable Patient Instructions: Self-Care for Headaches, High Blood Pressure (Hypertension) Additional Instructions: Follow up with your primary doctor in the next 1-2 days. Return for any worsening symptoms. SONIA RIZO MD June 30, 2018 23:11
== END 2018-06-27 05:44 | disposition home or self-care (01) ==
LOC: E/R 01:12
DX: N12 Tubulo-interstitial nephritis, not specified as acute or chronic (principal); I10 Essential (primary) hypertension; E11.9 Type 2 diabetes mellitus without complications; Z79.4 Long term (current) use of insulin
CPT/HCPCS: 36415; 96374; 96375; 96376; Z7502; 74176; 80053; 81001; 82962; 83690; 84484; 85025; 85610; 93005; J0696; J1170; J2270; J2405

== ENCOUNTER 2018-06-27 23:49 | Inpatient (IN) | payer MEDICAID ==
[~2018-06-27] VITALS: Wt 67.7 kg
[~2018-06-27 23:49] MED LIST changes: +CEPH-443 PO; +PHEN-716 PO
[2018-06-28] VITALS (15 sets, daily range): BP systolic 106–146; BP diastolic 57–77; PULSE 82–107; RESP 11–28
[2018-06-28] MEDS ORDERED: SOD CHLORIDE 0.9% 1,000 ML IV STA (02:27)
[2018-06-28] MEDS ORDERED: morphine 4 MG/ML VIAL IV STA (02:27)
[2018-06-28] MEDS ORDERED: ONDANSETRON 4 MG INJ IV STA (02:27)
[2018-06-28] MEDS ORDERED: CIPROFLOXACIN 400MG/D5W 200 ML IVPB ONE (03:30)
[2018-06-28] MEDS ORDERED: D10/0.45% NACL + KCL 40 MEQ 1,000 ML IV SCH (03:31)
[2018-06-28] MEDS ORDERED: D10/0.45% NACL + KCL 30 MEQ 1,000 ML IV SCH (03:31)
[2018-06-28] MEDS ORDERED: NS + KCL 40 MEQ 1,000 ML IV SCH (03:31)
[2018-06-28] MEDS ORDERED: SOD CHLORIDE 0.9% 1,000 ML IV SCH (03:31)
[2018-06-28] MEDS ORDERED: DEXTROSE 10%/0.45% NACL 1,000 ML IV SCH (03:31)
[2018-06-28] MEDS ORDERED: INSULIN REGULAR, HUMAN 100 UNIT in SOD CHLORIDE 0.9% 100 ML IV SCH ×2 (04:00)
[2018-06-28] MEDS ORDERED: LACTATED RINGER'S 660 ML IV ONE (04:00)
[2018-06-28] MEDS ORDERED: morphine 2 MG INJ IV PRN (04:00)
[2018-06-28] MEDS ORDERED: ACETAMINOPHEN 650MG/20.3ML CUP PO PRN (04:00)
[2018-06-28] MEDS ORDERED: DEXTROSE 50% 50 ML SYRINGE IV PRN ×6 (04:00→21:30)
[2018-06-28] MEDS ORDERED: ALBUTEROL 0.083% (NEB) 2.5 MG/3 ML AMP NEB PRN (04:00)
[2018-06-28] MEDS ORDERED: IPRATROPIUM (NEB) 0.5 MG/2.5 ML AMP NEB PRN (04:00)
[2018-06-28] MEDS: NS + KCL 30 MEQ 1,000 ML IV SCH ×2 (04:40→08:44)
[2018-06-28] MEDS: HEPARIN 5,000 UNIT/1 ML VIAL SC SCH ×3 (06:17→22:06)
[2018-06-28] MEDS ORDERED: hydrALAzine 20 MG INJ IV PRN (06:30)
--- NOTE | 2018-06-28 06:32 | HP ---
Date/Time of Note Date/Time of Note DATE: 06/28/18 TIME: 06:18 Assessment/Plan VTE Prophylaxis Pharmacological prophylaxis: heparin Lines/Catheters IV C[facility]ter Type (from [facility] Saline Lock Assessment/Plan Hospital Course This is a 58-year-old female being admitted to the ICU floor for: #1 DKA: Likely worsened by UTI/pyelonephritis. DKA protocol has been initiated in the ER. Serial ABG BMP and additional labs as per the DKA protocol have been ordered. Insulin drip and IV fluids are in place. Close monitoring in the ICU. Will check a hemoglobin A1c. #2 Sepsis: Tachycardia, leukocytosis. Secondary to underlying urinary tract infection/pyelonephritis. It appears she has been treated with antibiotics recently including ciprofloxacin. She was given ciprofloxacin in the ED. Based on previous urine culture results it does appear the patient did have ESBL in the past. Will treat the patient at the current time with meropenem. Await culture results. Trend lactic acid levels. #3 pyelonephritis: While patient does not have any flank pain on examination, recent CT scan done on 06/27 did show perinephric stranding and hydronephrosis. Patient was recently treated with ciprofloxacin. We will initiate the patient on meropenem given that patient had a previous history of ESBL as well. Await culture results. #4 acute kidney injury: Secondary to underlying sepsis, DKA, hemodynamics. I IV fluid hydration as per the DKA protocol. Treat the DKA and sepsis. Avoid nephrotoxic agents. Avoid NSAIDs. Monitor closely. #5 hypertension: PRN hydralazine, will need to confirm patient's home blood pressure medications #6 hyperlipidemia: Check lipid panel, will need to confirm patient's home statin #7 diabetes mellitus: Treated as per #1, will check hemoglobin A1c, lipid panel, TSH #8 DVT and GI prophylaxis: Heparin, H 2 ophelia Greater than 35 minutes critical care time was spent on the care management this patient Further treatment strategy will be implemented as per the clinical course Result Diagram: 06/28/18 0516 06/28/18 0250 Results 24hrs Laboratory Tests Test 06/28/18 02:50 06/28/18 04:01 06/28/18 04:31 06/28/18 04:33 White Blood 16.2 #H Count Red Blood Count 4.76 Hemoglobin 13.2 Hematocrit 41.0 Mean Corpuscular 86.1 Volume Mean Corpuscular 27.7 L Hemoglobin Mean Corpuscular 32.2 Hemoglobin Luci nt Red Cell 12.3 Distribution Width Platelet Count 366 Mean Platelet 9.7 Volume Immature 0.700 H Granulocytes % Neutrophils % 93.3 H Lymphocytes % 4.0 L Monocytes % 1.7 Eosinophils % 0.0 Basophils % 0.3 Nucleated Red 0.0 Blood Cells % Immature 0.110 H Granulocytes # Neutrophils # 15.1 H Lymphocytes # 0.7 L Monocytes # 0.3 Eosinophils # 0.0 Basophils # 0.1 Nucleated Red 0.0 Blood Cells # Urine Color DINO Urine Clarity SLIGHTLY CLOUDY A Urine pH 5.0 Urine Specific 1.024 [place] Urine Ketones 2+ H Urine Nitrite POSITIVE A Urine Bilirubin NEGATIVE Urine NEGATIVE Urobilinogen Urine Leukocyte 1+ H Esterase Urine 29 H Microscopic RBC Urine 44 H Microscopic WBC Urine Squamous FEW Epithelial Cells Urine Bacteria FEW A Urine Mucus FEW A Urine Yeast FEW A (Budding) Urine Hemoglobin 2+ H Urine Glucose 3+ H Urine Total 2+ H Protein Sodium Level 141 Potassium Level 4.6 Chloride Level 99 Carbon Dioxide 18 L Level Anion Gap 24 #H Blood Urea 20 Nitrogen Creatinine 1.21 H Est Glomerular 46 L Filtrat Rate mL/min Glucose Level 548 #*H Hemoglobin A1c > 14.0 H Calcium Level 10.0 Total Bilirubin 0.9 Direct Bilirubin 0.00 Indirect 0.9 Bilirubin Aspartate Amino 19 Transf (AST/SGOT ) Alanine < 6 L Aminotransferase (ALT/SGPT) Alkaline 153 H Phosphatase Total Protein 8.6 H Albumin 4.4 Globulin 4.20 H Albumin/Globulin 1.04 Ratio Lipase 38 Blood Gas Blood venous Specimen Source Arterial Blood 06/28/2018 3:55: Date Drawn 40 AM Arterial Blood VENOUS LINE Gas Puncture Site Jorgito Test N/A Venous Blood pH 7.279 L Venous Blood 36.5 pCO2 (Temp Corrected) Venous Blood pO2 47.8 H (Temp Corrected) Venous Blood 16.7 L HCO3 Venous Blood 81.6 H Oxygen Saturation Venous Blood -9.2 L Base Excess Venous Blood 12.8 Total Hemoglobin Venous Blood 81.2 Oxyhemoglobin Venous Blood 0.4 Methemoglobin Carboxyhemoglobi 0.1 n Blood Gas 37.0 Temperature Blood Gas ROOM AIR Modality FiO2 21.0 Blood Gas MR Notified Whom Blood Gas 06/28/2018 4:06: Notified Time 16 AM Bedside Glucose 465 *H 474 *H Test 06/28/18 05:16 06/28/18 05:31 06/28/18 06:07 White Blood 14.9 H Count Red Blood Count 4.29 Hemoglobin 12.0 Hematocrit 36.7 L Mean Corpuscular 85.5 Volume Mean Corpuscular 28.0 L Hemoglobin Mean Corpuscular 32.7 Hemoglobin Luci nt Red Cell 12.4 Distribution Width Platelet Count 304 Mean Platelet 9.8 Volume Immature 0.500 H Granulocytes % Neutrophils % 92.8 H Lymphocytes % 4.8 L Monocytes % 1.7 Eosinophils % 0.0 Basophils % 0.2 Nucleated Red 0.0 Blood Cells % Immature 0.080 H Granulocytes # Neutrophils # 13.8 H Lymphocytes # 0.7 L Monocytes # 0.3 Eosinophils # 0.0 Basophils # 0.0 Nucleated Red 0.0 Blood Cells # Blood Gas Blood venous Specimen Source Arterial Blood 06/28/2018 5:38: Date Drawn 40 AM Arterial Blood VENOUS LINE Gas Puncture Site Jorgito Test N/A Venous Blood pH 7.329 L Venous Blood 34.0 L pCO2 (Temp Corrected) Venous Blood pO2 51.0 H (Temp Corrected) Venous Blood 17.5 L HCO3 Venous Blood 85.4 H Oxygen Saturation Venous Blood -7.5 L Base Excess Venous Blood 12.8 Total Hemoglobin Venous Blood 84.7 Oxyhemoglobin Venous Blood 0.5 Methemoglobin Carboxyhemoglobi 0.3 n Blood Gas 37.0 Temperature Blood Gas ROOM AIR Modality FiO2 21.0 Blood Gas MR Notified Whom Blood Gas 06/28/2018 5:45: Notified Time 13 AM Bedside Glucose 425 *H 412 *H HPI/ROS Admit Date/Time Admit Date/Time June 28, 2018 at 03:39 Hx of Present Illness Chief complaint: Decreased appetite, urinary frequency This is a 58-year-old female with a past medical history of diabetes mellitus who presents to the emergency department with decreased appetite and urinary frequency and fever. Patient reports that she was recently diagnosed with a UTI in the emergency department and sent home on antibiotics. She started developing vomiting and had decreased appetite along with an occasional cough and a fever which letter to the emergency department today. She does report urinary frequency. Denies any dysuria. Denies any phlegm with her cough. Allergies: Penicillin Medications: See MAR ROS Const: As per HPI Eyes : No pain discharge or redness or change in visual acuity ENT: No pain, sore throat, congestion, congestion, dysphagia or discharge Respiratory: No shortness of breath, cough, sputum, wheezing, or pleuritic pain Cardiovascular: No chest pain, palpitation, PND, or edema GI : As per HPI Genitourinary: As per HPI Musculoskeletal: No joint pain, back pain, neck pain, restricted range of motion in neck or joints Skin: No rash, bruising or hives Neuro: No headache, dizziness, syncope, seizure, focal weakness Endocrine: No polyuria, polydipsia, temperature intolerance Psych: No hallucination, depression, anxiety or suicidal ideation PMH/Family/Social Past Medical History Diabetes mellitus, hypertension, hyperlipidemia Medications Current Medications Potassium Chloride/Sodium Chloride 1,000 ml @ 0 mls/hr Q0M IV ; Start 06/28/18 at 03:31 Potassium Chloride/Dextrose/ Sod Cl 1,000 ml @ 0 mls/hr Q0M IV ; Start 06/28/18 at 03:31 Potassium Chloride/Sodium Chloride 1,000 ml @ 0 mls/hr Q0M IV Last administered on 06/28/18at 04:40; Admin Dose 250 MLS/HR; Start 06/28/18 at 03:31 Potassium Chloride/Dextrose/ Sod Cl 1,000 ml @ 0 mls/hr Q0M IV ; Start 06/28/18 at 03:31 Sodium Chloride 1,000 ml @ 0 mls/hr Q0M IV ; Start 06/28/18 at 03:31 Dextrose/Sodium Chloride 1,000 ml @ 0 mls/hr Q0M IV ; Start 06/28/18 at 03:31 Insulin Human Regular 100 unit/ Sodium Chloride 101 ml @ 6.7 mls/hr ER DKA PROTOCOL IV Last administered on 06/28/18at 04:39; Admin Dose 6.7 MLS/HR; Start 06/28/18 at 04:00 Miscellaneous Information (* Miscellaneous Pharmacy Order) HYPOGLYCEMIA TREATMENT HYPOGLYCEM PROTOCOL PRN XX .HYPOGLYCEMIA PROTOCOL; Start 06/28/18 at 04:00 Dextrose (D50w Syringe) 50 ml Q15M PRN IV .DECREASED GLUCOSE; Start 06/28/18 at 04:00 Dextrose (D50w Syringe) 25 ml Q15M PRN IV .DECREASED GLUCOSE; Start 06/28/18 at 04:00 Albuterol (Proventil 0.083% (Neb)) 2.5 mg Q2H RESP THERAPY PRN NEB SHORTNESS OF BREATH; Start 06/28/18 at 04:00 Ipratropium [place] (Atrovent 0.02% (Neb)) 0.5 mg Q2H RESP THERAPY PRN NEB SHORTNESS OF BREATH; Start 06/28/18 at 04:00 Acetaminophen (Tylenol Liquid) 650 mg Q6H PRN PO PAIN LEVEL 1-3 OR FEVER; Start 06/28/18 at 04:00 Morphine Sulfate (morphine) 2 mg Q4H PRN IV PAIN LEVEL 7-10; Start 06/28/18 at 04:00 Famotidine (Pepcid Iv) 20 mg BID IV ; Start 06/28/18 at 09:00 Heparin Sodium (Porcine) (Heparin (5000 Units/1ml)) 5,000 unit Q8 SC Last administered on 06/28/18at 06:17; Admin Dose 5,000 UNIT; Start 06/28/18 at 06:00 Ciprofloxacin/ Dextrose 200 ml @ 200 mls/hr Q12 IVPB ; Start 06/28/18 at 12:00; Status UNV Coded Allergies: Penicillins (Unverified Allergy, Unknown, 08/02/16) Past Surgical History Cholecystectomy, hysterectomy Family History Significant Family History: no pertinent family hx Social History Alcohol Use: none Smoking Status: Never smoker Drug Use: none Exam/Review of Systems Vital Signs Vitals Vital Signs Date Temp Pulse Resp B/P (MAP) Pulse Ox O2 O2 Flow FiO2 Time Delivery Rate 06/28/18 99.2 105 20 166/75 97 00:01 (105) Exam Exam General: Patient is currently lying in bed in no acute distress, she does report feeling thirsty. HEENT: Atraumatic, normocephalic. The pupils are equal, round and reactive. Extraocular motor are intact, dry mucous membranes Neck: Supple with full range of motion. No rigidity or meningismus Chest: Nontender Lungs: Clear to auscultation bilaterally no crackles rales or wheezing Heart: Normal S1-S2, Regular rhythm and rate. No murmur, S3, or S4 Abdomen: Soft , nontender, nondistended , bowel sounds are present. No guarding no rebound tenderness , No masses or organomegaly. No costovertebral temporal angle mass Extremities: Normal to inspection, no edema no cyanosis Neurologic: Normal mental status, speech normal, cranial nerves II through XII are intact, motor and sensory are intact, Additional Comments PROCEDURE: CT of the abdomen and pelvis without contrast CLINICAL INDICATION: Abdominal pain TECHNIQUE: Spiral CT images through the abdomen and pelvis without the use of contrast. The administered radiation dose is CTDI 14.02 mGy and DLP 815.53 mGy*cm. Coronal and sagittal reformatted images were submitted. One or more of the following dose reduction techniques were used: automated exposure control, adjustment of the mA and/or kV according to patient size, or use of iterative reconstruction technique. DICOM images are available. COMPARISON: CT 03/12/2016 FINDINGS: Lack of oral and intravenous contrast somewhat limits evaluation. Slight dependent atelectasis of the lung bases is seen. No pleural effusion is seen. The liver, spleen, and adrenal glands are unremarkable. The pancreas is atrophic. Cholecystectomy clips are seen. The right kidney is normal. Left perinephric stranding and fluid are again seen. There is mild increase left hydronephrosis. No calculus is identified. The aorta is normal in caliber. There is no evidence for bowel obstruction, free air, or abscess. The appendix is normal in appearance. . The colon is fecal filled with abundant stool in the ascending and transverse colon. Colonic diverticulosis is noted without evidence of acute diverticulitis.. No adenopathy or ascites is seen. The uterus is absent. The bladder is normal. There is mild degenerative change of the spine and hips. Severe L4-5 facet arthrosis. IMPRESSION: Persistent left perinephric stranding and mild increase hydronephrosis. No evidence of a calculus. Infection is not excluded. Contrast enhanced exam may be helpful. Correlate clinically. Abundant stool in the colon and colonic diverticulosis without evidence of acute diverticulitis. Cholecystectomy and hysterectomy. [facility] Physician Swapna Date Time Electronically viewed and signed by Physician Swapna on 06/27/2018 04:23 CS/ CC: SONIA RIZO MD [id number] LEONARD LOZANO June 28, 2018 06:31
[2018-06-28] MEDS: MEROPENEM 1 GM/50ML(PMX) 50 ML IVPB SCH ×2 (08:49→20:45)
[2018-06-28] MEDS: FAMOTIDINE 20 MG INJ IV SCH ×2 (08:49→20:44)
[2018-06-28] MEDS ORDERED: MAGNESIUM SULFATE 2 GM/50 ML 50 ML IVPB ONE (10:00)
[2018-06-28] MEDS ORDERED: CIPROFLOXACIN 400MG/D5W 200 ML IVPB SCH (12:00)
[2018-06-28] MEDS ORDERED: LEVOFLOXACIN 750MG/D5W (PMX) 150 ML IVPB SCH (12:00)
[2018-06-28] MEDS ORDERED: INSULIN HUMAN REGULAR 100 UNIT in SOD CHLORIDE 0.9% 99 ML IV SCH (13:30)
[2018-06-28] MEDS ORDERED: INSULIN GLARGINE [LANTus] (100 UNITS/ML) SYG SC ONE (13:30)
[2018-06-28] MEDS: ACCU-CHEK XX SCH ×5 (13:45→17:46)
--- NOTE | 2018-06-28 15:41 | PN ---
Date/Time of Note Date/Time of Note DATE: 06/28/18 TIME: 15:36 Assessment/Plan VTE Prophylaxis Risk score (from Ns)>0 risk: 1 SCD applied (from Ns): Yes Pharmacological prophylaxis: heparin Lines/Catheters IV Catheter Type (from Nrs): Peripheral IV Urinary Cath still in place: No Assessment/Plan Hospital Course 58y o female with DMII who presneted with DKA and UTI DKA: - resolved DMII: - Basal/bolus insulin titration UTI: - Continue abx, await C/S Transfer to floor Result Diagram: 06/28/18 0516 06/28/18 1114 Results 24hrs Laboratory Tests Test 06/28/18 02:50 06/28/18 04:01 06/28/18 04:31 06/28/18 04:33 White Blood 16.2 #H Count Red Blood Count 4.76 Hemoglobin 13.2 Hematocrit 41.0 Mean 86.1 Corpuscular Volume Mean 27.7 L Corpuscular Hemoglobin Mean 32.2 Corpuscular Hemoglobin Conc ent Red Cell 12.3 Distribution Width Platelet Count 366 Mean Platelet 9.7 Volume Immature 0.700 H Granulocytes % Neutrophils % 93.3 H Lymphocytes % 4.0 L Monocytes % 1.7 Eosinophils % 0.0 Basophils % 0.3 Nucleated Red 0.0 Blood Cells % Immature 0.110 H Granulocytes # Neutrophils # 15.1 H Lymphocytes # 0.7 L Monocytes # 0.3 Eosinophils # 0.0 Basophils # 0.1 Nucleated Red 0.0 Blood Cells # Urine Color DINO Urine Clarity SLIGHTLY CLOUDY A Urine pH 5.0 Urine Specific 1.024 Com[place]che Urine Ketones 2+ H Urine Nitrite POSITIVE A Urine Bilirubin NEGATIVE Urine NEGATIVE Urobilinogen Urine Leukocyte 1+ H Esterase Urine 29 H Microscopic RBC Urine 44 H Microscopic WBC Urine Squamous FEW Epithelial Cell s Urine Bacteria FEW A Urine Mucus FEW A Urine Yeast FEW A (Budding) Urine 2+ H Hemoglobin Urine Glucose 3+ H Urine Total 2+ H Protein Sodium Level 141 Potassium Level 4.6 Chloride Level 99 Carbon Dioxide 18 L Level Anion Gap 24 #H Blood Urea 20 Nitrogen Creatinine 1.21 H Est Glomerular 46 L Filtrat Rate mL/min Glucose Level 548 #*H Hemoglobin A1c > 14.0 H Calcium Level 10.0 Total Bilirubin 0.9 Direct 0.00 Bilirubin Indirect 0.9 Bilirubin Aspartate Amino 19 Transf (AST/SGO T) Alanine < 6 L Aminotransferas e (ALT/SGPT) Alkaline 153 H Phosphatase Total Protein 8.6 H Albumin 4.4 Globulin 4.20 H Albumin/Globuli 1.04 n Ratio Lipase 38 Blood Gas Blood venous Specimen Source Arterial Blood 06/28/2018 3:55 Date Drawn :40 AM Arterial Blood VENOUS LINE Gas Puncture Site Jorgito Test N/A Venous Blood pH 7.279 L Venous Blood 36.5 pCO2 (Temp Corrected ) Venous Blood 47.8 H pO2 (Temp Corrected ) Venous Blood 16.7 L HCO3 Venous Blood 81.6 H Oxygen Saturation Venous Blood -9.2 L Base Excess Venous Blood 12.8 Total Hemoglobin Venous Blood 81.2 Oxyhemoglobin Venous Blood 0.4 Methemoglobin Carboxyhemoglob 0.1 in Blood Gas 37.0 Temperature Blood Gas ROOM AIR Modality FiO2 21.0 Blood Gas MR Notified Whom Blood Gas 06/28/2018 4:06 Notified Time :16 AM Bedside Glucose 465 *H 474 *H Test 06/28/18 05:16 06/28/18 05:31 06/28/18 06:07 06/28/18 07:31 White Blood 14.9 H Count Red Blood Count 4.29 Hemoglobin 12.0 Hematocrit 36.7 L Mean 85.5 Corpuscular Volume Mean 28.0 L Corpuscular Hemoglobin Mean 32.7 Corpuscular Hemoglobin Conc ent Red Cell 12.4 Distribution Width Platelet Count 304 Mean Platelet 9.8 Volume Immature 0.500 H Granulocytes % Neutrophils % 92.8 H Lymphocytes % 4.8 L Monocytes % 1.7 Eosinophils % 0.0 Basophils % 0.2 Nucleated Red 0.0 Blood Cells % Immature 0.080 H Granulocytes # Neutrophils # 13.8 H Lymphocytes # 0.7 L Monocytes # 0.3 Eosinophils # 0.0 Basophils # 0.0 Nucleated Red 0.0 Blood Cells # Sodium Level 139 Potassium Level 4.0 Chloride Level 102 Carbon Dioxide 17 L Level Anion Gap 20 H Blood Urea 20 Nitrogen Creatinine 0.98 Est Glomerular 59 L Filtrat Rate mL/min Glucose Level 473 *H Calcium Level 9.2 Phosphorus 5.2 H Level Magnesium Level 1.8 Blood Gas Blood venous Blood venous Specimen Source Arterial Blood 06/28/2018 5:38 06/28/2018 7:30 Date Drawn :40 AM :21 AM Arterial Blood VENOUS LINE VENOUS LINE Gas Puncture Site Jorgito Test N/A N/A Venous Blood pH 7.329 L 6.998 *L Venous Blood 34.0 L 78.9 H pCO2 (Temp Corrected ) Venous Blood 51.0 H 46.0 H pO2 (Temp Corrected ) Venous Blood 17.5 L 18.9 L HCO3 Venous Blood 85.4 H 67.5 Oxygen Saturation Venous Blood -7.5 L -13.5 L Base Excess Venous Blood 12.8 13.1 Total Hemoglobin Venous Blood 84.7 66.8 Oxyhemoglobin Venous Blood 0.5 0.5 Methemoglobin Carboxyhemoglob 0.3 0.5 in Blood Gas 37.0 37.0 Temperature Blood Gas ROOM AIR ROOM AIR Modality FiO2 21.0 21.0 Blood Gas MR TM Notified Whom Blood Gas 06/28/2018 5:45 06/28/2018 8:00 Notified Time :13 AM :26 AM Bedside Glucose 425 *H 412 *H Blood Gas VALERIE Banerjee Critical Value N Read Back Test 06/28/18 07:32 06/28/18 07:33 06/28/18 08:45 06/28/18 09:31 Bedside Glucose 319 H 290 H 259 H Sodium Level 139 Potassium Level 4.0 Chloride Level 106 Carbon Dioxide 20 L Level Anion Gap 13 # Blood Urea 19 Nitrogen Creatinine 0.86 Est Glomerular > 60 Filtrat Rate mL/min Glucose Level 369 H Lactic Acid 2.1 *H Level Calcium Level 8.9 Phosphorus 4.3 Level Magnesium Level 1.6 L Test 06/28/18 10:34 06/28/18 11:14 06/28/18 11:31 06/28/18 11:43 Bedside Glucose 284 H 255 H Sodium Level 138 Potassium Level 4.2 Chloride Level 109 Carbon Dioxide 23 Level Anion Gap 6 Blood Urea 18 Nitrogen Creatinine 0.75 Est Glomerular > 60 Filtrat Rate mL/min Glucose Level 277 H Calcium Level 8.8 Phosphorus 3.1 Level Magnesium Level 1.6 L Blood Gas Blood venous Specimen Source Arterial Blood 06/28/2018 11:4 Date Drawn 0:55 AM Arterial Blood VENOUS LINE Gas Puncture Site Jorgito Test N/A Venous Blood pH 7.454 H Venous Blood 29.7 L pCO2 (Temp Corrected ) Venous Blood 41.6 H pO2 (Temp Corrected ) Venous Blood 20.4 L HCO3 Venous Blood 83.1 H Oxygen Saturation Venous Blood -2.7 Base Excess Venous Blood 10.9 Total Hemoglobin Venous Blood 82.6 Oxyhemoglobin Venous Blood 0.3 Methemoglobin Carboxyhemoglob 0.3 in Blood Gas 37.0 Temperature Blood Gas ROOM AIR Modality FiO2 21.0 Blood Gas TM Notified Whom Blood Gas 06/28/2018 11:5 Notified Time 1:01 AM Test 06/28/18 12:51 06/28/18 13:45 06/28/18 14:47 Bedside Glucose 230 H 220 200 Subjective 24 Hr Interval Summary Free Text/Dictation DKA resolved Dysuria resolved Exam/Review of Systems Exam Vitals Vital Signs Date Temp Pulse Resp B/P (MAP) Pulse Ox O2 O2 Flow FiO2 Time Delivery Rate 06/28/18 89 17 133/72 96 Room Air 14:00 (92) 06/28/18 98.4 12:00 Intake and Output 06/27/18 06/27/18 06/28/18 1515:00 23:00 07:00 IntakeIntake Total 763.4 ml OutputOutput Total 300 ml BalanceBalance 463.4 ml Constitutional: alert, oriented, well developed Psych: no complaints, nl mood/affect Head: normocephalic, atraumatic Eyes: nl conjunctiva, EOMI, nl lids, nl sclera, PERRL ENMT: nl external ears & nose, nl lips & teeth, nl nasal mucosa & septum Neck: supple, non-tender Respiratory: clear to auscultation, normal air movement Cardiovascular: regular rate and rhythm, nl pulses Gastrointestinal: soft, nl liver, spleen, non-tender Musculoskeletal: nl extremities to inspection, nl gait and stance Extremities: normal pulses Neurological: [employer] II-XII intact, nl mental status, nl speech, nl strength Skin: nl turgor; No rash or lesions Lymph: nl lymph nodes Results Results 24hrs Laboratory Tests Test 06/28/18 02:50 06/28/18 04:01 06/28/18 04:31 06/28/18 04:33 White Blood 16.2 #H Count Red Blood Count 4.76 Hemoglobin 13.2 Hematocrit 41.0 Mean 86.1 Corpuscular Volume Mean 27.7 L Corpuscular Hemoglobin Mean 32.2 Corpuscular Hemoglobin Conc ent Red Cell 12.3 Distribution Width Platelet Count 366 Mean Platelet 9.7 Volume Immature 0.700 H Granulocytes % Neutrophils % 93.3 H Lymphocytes % 4.0 L Monocytes % 1.7 Eosinophils % 0.0 Basophils % 0.3 Nucleated Red 0.0 Blood Cells % Immature 0.110 H Granulocytes # Neutrophils # 15.1 H Lymphocytes # 0.7 L Monocytes # 0.3 Eosinophils # 0.0 Basophils # 0.1 Nucleated Red 0.0 Blood Cells # Urine Color DINO Urine Clarity SLIGHTLY CLOUDY A Urine pH 5.0 Urine Specific 1.024 [place] Urine Ketones 2+ H Urine Nitrite POSITIVE A Urine Bilirubin NEGATIVE Urine NEGATIVE Urobilinogen Urine Leukocyte 1+ H Esterase Urine 29 H Microscopic RBC Urine 44 H Microscopic WBC Urine Squamous FEW Epithelial Cell s Urine Bacteria FEW A Urine Mucus FEW A Urine Yeast FEW A (Budding) Urine 2+ H Hemoglobin Urine Glucose 3+ H Urine Total 2+ H Protein Sodium Level 141 Potassium Level 4.6 Chloride Level 99 Carbon Dioxide 18 L Level Anion Gap 24 #H Blood Urea 20 Nitrogen Creatinine 1.21 H Est Glomerular 46 L Filtrat Rate mL/min Glucose Level 548 #*H Hemoglobin A1c > 14.0 H Calcium Level 10.0 Total Bilirubin 0.9 Direct 0.00 Bilirubin Indirect 0.9 Bilirubin Aspartate Amino 19 Transf (AST/SGO T) Alanine < 6 L Aminotransferas e (ALT/SGPT) Alkaline 153 H Phosphatase Total Protein 8.6 H Albumin 4.4 Globulin 4.20 H Albumin/Globuli 1.04 n Ratio Lipase 38 Blood Gas Blood venous Specimen Source Arterial Blood 06/28/2018 3:55 Date Drawn :40 AM Arterial Blood VENOUS LINE Gas Puncture Site Jorgito Test N/A Venous Blood pH 7.279 L Venous Blood 36.5 pCO2 (Temp Corrected ) Venous Blood 47.8 H pO2 (Temp Corrected ) Venous Blood 16.7 L HCO3 Venous Blood 81.6 H Oxygen Saturation Venous Blood -9.2 L Base Excess Venous Blood 12.8 Total Hemoglobin Venous Blood 81.2 Oxyhemoglobin Venous Blood 0.4 Methemoglobin Carboxyhemoglob 0.1 in Blood Gas 37.0 Temperature Blood Gas ROOM AIR Modality FiO2 21.0 Blood Gas MR Notified Whom Blood Gas 06/28/2018 4:06 Notified Time :16 AM Bedside Glucose 465 *H 474 *H Test 06/28/18 05:16 06/28/18 05:31 06/28/18 06:07 06/28/18 07:31 White Blood 14.9 H Count Red Blood Count 4.29 Hemoglobin 12.0 Hematocrit 36.7 L Mean 85.5 Corpuscular Volume Mean 28.0 L Corpuscular Hemoglobin Mean 32.7 Corpuscular Hemoglobin Conc ent Red Cell 12.4 Distribution Width Platelet Count 304 Mean Platelet 9.8 Volume Immature 0.500 H Granulocytes % Neutrophils % 92.8 H Lymphocytes % 4.8 L Monocytes % 1.7 Eosinophils % 0.0 Basophils % 0.2 Nucleated Red 0.0 Blood Cells % Immature 0.080 H Granulocytes # Neutrophils # 13.8 H Lymphocytes # 0.7 L Monocytes # 0.3 Eosinophils # 0.0 Basophils # 0.0 Nucleated Red 0.0 Blood Cells # Sodium Level 139 Potassium Level 4.0 Chloride Level 102 Carbon Dioxide 17 L Level Anion Gap 20 H Blood Urea 20 Nitrogen Creatinine 0.98 Est Glomerular 59 L Filtrat Rate mL/min Glucose Level 473 *H Calcium Level 9.2 Phosphorus 5.2 H Level Magnesium Level 1.8 Blood Gas Blood venous Blood venous Specimen Source Arterial Blood 06/28/2018 5:38 06/28/2018 7:30 Date Drawn :40 AM :21 AM Arterial Blood VENOUS LINE VENOUS LINE Gas Puncture Site Jorgito Test N/A N/A Venous Blood pH 7.329 L 6.998 *L Venous Blood 34.0 L 78.9 H pCO2 (Temp Corrected ) Venous Blood 51.0 H 46.0 H pO2 (Temp Corrected ) Venous Blood 17.5 L 18.9 L HCO3 Venous Blood 85.4 H 67.5 Oxygen Saturation Venous Blood -7.5 L -13.5 L Base Excess Venous Blood 12.8 13.1 Total Hemoglobin Venous Blood 84.7 66.8 Oxyhemoglobin Venous Blood 0.5 0.5 Methemoglobin Carboxyhemoglob 0.3 0.5 in Blood Gas 37.0 37.0 Temperature Blood Gas ROOM AIR ROOM AIR Modality FiO2 21.0 21.0 Blood Gas MR TM Notified Whom Blood Gas 06/28/2018 5:45 06/28/2018 8:00 Notified Time :13 AM :26 AM Bedside Glucose 425 *H 412 *H Blood Gas VALERIE Banerjee Critical Value N Read Back Test 06/28/18 07:32 06/28/18 07:33 06/28/18 08:45 06/28/18 09:31 Bedside Glucose 319 H 290 H 259 H Sodium Level 139 Potassium Level 4.0 Chloride Level 106 Carbon Dioxide 20 L Level Anion Gap 13 # Blood Urea 19 Nitrogen Creatinine 0.86 Est Glomerular > 60 Filtrat Rate mL/min Glucose Level 369 H Lactic Acid 2.1 *H Level Calcium Level 8.9 Phosphorus 4.3 Level Magnesium Level 1.6 L Test 06/28/18 10:34 06/28/18 11:14 06/28/18 11:31 06/28/18 11:43 Bedside Glucose 284 H 255 H Sodium Level 138 Potassium Level 4.2 Chloride Level 109 Carbon Dioxide 23 Level Anion Gap 6 Blood Urea 18 Nitrogen Creatinine 0.75 Est Glomerular > 60 Filtrat Rate mL/min Glucose Level 277 H Calcium Level 8.8 Phosphorus 3.1 Level Magnesium Level 1.6 L Blood Gas Blood venous Specimen Source Arterial Blood 06/28/2018 11:4 Date Drawn 0:55 AM Arterial Blood VENOUS LINE Gas Puncture Site Jorgito Test N/A Venous Blood pH 7.454 H Venous Blood 29.7 L pCO2 (Temp Corrected ) Venous Blood 41.6 H pO2 (Temp Corrected ) Venous Blood 20.4 L HCO3 Venous Blood 83.1 H Oxygen Saturation Venous Blood -2.7 Base Excess Venous Blood 10.9 Total Hemoglobin Venous Blood 82.6 Oxyhemoglobin Venous Blood 0.3 Methemoglobin Carboxyhemoglob 0.3 in Blood Gas 37.0 Temperature Blood Gas ROOM AIR Modality FiO2 21.0 Blood Gas TM Notified Whom Blood Gas 06/28/2018 11:5 Notified Time 1:01 AM Test 06/28/18 12:51 06/28/18 13:45 06/28/18 14:47 Bedside Glucose 230 H 220 200 Medications Medication Current Medications Potassium Chloride/Sodium Chloride 1,000 ml @ 0 mls/hr Q0M IV ; Start 06/28/18 at 03:31 Potassium Chloride/Dextrose/ Sod Cl 1,000 ml @ 0 mls/hr Q0M IV ; Start 06/28/18 at 03:31 Potassium Chloride/Sodium Chloride 1,000 ml @ 0 mls/hr Q0M IV Last administere d on 06/28/18at 08:44; Admin Dose 300 MLS/HR; Start 06/28/18 at 03:31 Potassium Chloride/Dextrose/ Sod Cl 1,000 ml @ 0 mls/hr Q0M IV Last administered on 06/28/18at 09:26; Admin Dose 150 MLS/HR; Start 06/28/18 at 03:31 Sodium Chloride 1,000 ml @ 0 mls/hr Q0M IV ; Start 06/28/18 at 03:31 Dextrose/Sodium Chloride 1,000 ml @ 0 mls/hr Q0M IV ; Start 06/28/18 at 03:31 Insulin Human Regular 100 unit/ Sodium Chloride 101 ml @ 6.7 mls/hr ER DKA PROTOCOL IV Last administered on 06/28/18at 04:39; Admin Dose 6.7 MLS/HR; Start 06/28/18 at 04:00 Miscellaneous Information (* Miscellaneous Pharmacy Order) HYPOGLYCEMIA TREATMENT HYPOGLYCEM PROTOCOL PRN XX .HYPOGLYCEMIA PROTOCOL; Start 06/28/18 at 04:00 Dextrose (D50w Syringe) 50 ml Q15M PRN IV .DECREASED GLUCOSE; Start 06/28/18 at 04:00 Dextrose (D50w Syringe) 25 ml Q15M PRN IV .DECREASED GLUCOSE; Start 06/28/18 at 04:00 Albuterol (Proventil 0.083% (Neb)) 2.5 mg Q2H RESP THERAPY PRN NEB SHORTNESS OF BREATH; Start 06/28/18 at 04:00 Ipratropium [place] (Atrovent 0.02% (Neb)) 0.5 mg Q2H RESP THERAPY PRN NEB SHORTNESS OF BREATH; Start 06/28/18 at 04:00 Acetaminophen (Tylenol Liquid) 650 mg Q6H PRN PO PAIN LEVEL 1-3 OR FEVER; Start 06/28/18 at 04:00 Morphine Sulfate (morphine) 2 mg Q4H PRN IV PAIN LEVEL 7-10; Start 06/28/18 at 04:00 Famotidine (Pepcid Iv) 20 mg BID IV Last administered on 06/28/18at 08:49; Admin Dose 20 MG; Start 06/28/18 at 09:00 Heparin Sodium (Porcine) (Heparin (5000 Units/1ml)) 5,000 unit Q8 SC Last administered on 06/28/18at 13:11; Admin Dose 5,000 UNIT; Start 06/28/18 at 06:00 Hydralazine HCl (Apresoline) 10 mg Q4H PRN IV ELEVATED BLOOD PRESSURE; Start 06/28/18 at 06:30 Meropenem/Sodium Chloride 50 ml @ 100 mls/hr Q12 IVPB Last administered on 06/28/18at 08:49; Admin Dose 100 MLS/HR; Start 06/28/18 at 09:00 Diagnostic Test (Pha) (Accu-Chek) 1 ea Q1H XX Last administered on 06/28/18at 14:50; Admin Dose 1 EA; Start 06/28/18 at 13:30 Insulin Human Regular 100 unit/ Sodium Chloride 100 ml @ 0 mls/hr PER PROTOCOL IV ; Start 06/28/18 at 13:30 Miscellaneous Information (* Miscellaneous Pharmacy Order) Treatment of Hypoglycemia: 1.BG 51... Per protocol XX ; Start 06/28/18 at 13:30 Dextrose (D50w Syringe) 25 ml Q15M PRN IV .DECREASED GLUCOSE; Start 06/28/18 at 13:30 Dextrose (D50w Syringe) 50 ml Q15M PRN IV .DECREASED GLUCOSE; Start 06/28/18 at 13:30 Insulin Aspart (Novolog Insulin Pen) 5 unit WITH MEALS SC ; Start 06/28/18 at 17:35 EILEEN MUNGUIA MD June 28, 2018 15:41
[2018-06-28] MEDS: INSULIN ASPART [NOVOLOG] 3 ML PEN SC SCH ×2 (17:52→21:00)
[2018-06-28] MEDS ORDERED: GLUCOSE GEL 15 GRAM TUBE BUCCAL PRN (21:30)
[2018-06-28] MEDS ORDERED: GLUCAGON 1 MG INJ IM PRN (21:30)
[2018-06-28] MEDS ORDERED: GLUCOSE GEL 15 GRAM TUBE PO PRN ×2 (21:30)
[2018-06-29 01:52] VITALS: BP 144/70; PULSE 86; RESP 16
[2018-06-29] MEDS: HEPARIN 5,000 UNIT/1 ML VIAL SC SCH ×3 (05:25→21:54)
[2018-06-29 07:35] VITALS: BP 150/72; PULSE 81; RESP 18
[2018-06-29] MEDS: FAMOTIDINE 20 MG INJ IV SCH ×2 (08:06→21:40)
[2018-06-29] MEDS: MEROPENEM 1 GM/50ML(PMX) 50 ML IVPB SCH ×2 (08:06→21:39)
[2018-06-29] MEDS: INSULIN GLARGINE [LANTus] (100 UNITS/ML) SYG SC SCH (08:11)
[2018-06-29] MEDS: INSULIN ASPART [NOVOLOG] 3 ML PEN SC SCH ×7 (08:12→21:48)
[2018-06-29] MEDS ORDERED: SULF1TAB31 PO (13:23)
--- NOTE | 2018-06-29 13:24 | PDOCDIS ---
Discharge Instructions DIAGNOSIS Discharge Diagnosis DKA CONDITION [id number] Patient Condition: [id number] Stable FOLLOW UP/APPOINTMENTS Follow-up Plan Continue your insulin as prescribed I have prescribed you four more days of antibiotics to take which are available to miner pick at [facility] EILEEN MUNGUIA MD June 29, 2018 13:24
[2018-06-29 14:32] VITALS: BP 141/74; PULSE 82; RESP 18
[2018-06-29] MEDS ORDERED: SIMV10TA PO (15:14)
[2018-06-29] MEDS ORDERED: LANT3I SC (15:14)
[2018-06-29] MEDS ORDERED: METF100010 PO (15:14)
--- NOTE | 2018-06-29 15:16 | DS ---
Date/Time of Note Date/Time of Note DATE: 06/29/18 TIME: 15:15 Discharge Summary Admission/Discharge Info Admit Date/Time June 28, 2018 at 03:39 Discharge Date/Time Discharge Diagnosis DKA Patient Condition: Stable Hospital Course 58y o female with DMII who presneted with DKA and UTI She was treated with IV insulin and DKA resolved. Antibiotics were prescribed for UTI with improvement The patient reports not using insulin for about 6 months. Her daughter at bedside has been encouraging her mom to use it, but without success. I explained at lenght the need to use insulin daily. The patient understands. We agreed to a once daily regimen of lantus as she was hesitant to do premeal as well. She will establish care with a primary care doctor [place]. Home Meds Active Scripts Insulin Glargine* (Lantus*) 100 Unit/Ml Soln, 30 UNIT SC DAILY for 60 Days, #1 VIAL 5 Refills Prov:EILEEN MUNGUIA MD 06/29/18 Simvastatin* (Zocor*) 10 Mg Tablet, 10 MG PO QHS, #90 TAB Prov:EILEEN MUNGUIA MD 06/29/18 Metformin Hcl* (Metformin Hcl*) 1,000 Mg Tablet, 1000 MG PO WITH BREAKFAST DINNE, #120 TAB 5 Refills Prov:EILEEN MUNGUIA MD 06/29/18 Sulfamethoxazole/Trimethoprim* (Bactrim Ds* Tablet) 1 Each Tablet, 1 TAB PO BID for 4 Days, #8 TAB Prov:EILEEN MUNGUIA MD 06/29/18 Benazepril Hcl* (Benazepril Hcl*) 40 Mg Tablet, 40 MG PO BID for 30 Days, TAB 2 Refills Prov:LISANDRO QUINTERO 03/16/16 Discontinued Reported Medications NPH, Human Insulin Isophane (Humulin N Kwikpen) 100 Unit/1 Ml Insuln.pen, UNIT SQ BID, EA 26 UNITS QAM AND 20 UNITS QHS 03/12/16 Insulin Human Regular (Novolin-R U-100) 100 Unit/Ml Soln, 5 UNITS SC AC MEALS BID, EA 03/12/16 Discontinued Scripts Cephalexin* (Keflex*) 500 Mg Capsule, 500 MG PO QID for 7 Days, CAP Prov:SONIA RIZO MD 06/27/18 Phenazopyridine Hcl* (Phenazopyridine Hcl*) 100 Mg Tablet, 100 MG PO TID for 7 Days, TAB Prov:SONIA RIZO MD 06/27/18 Ciprofloxacin Hcl* (Ciprofloxacin Hcl*) 500 Mg Tablet, 500 MG PO BID for uti for 7 Days, #14 TAB Prov:JOY BRASHER 06/21/18 Metformin* (Glucophage*) 1,000 Mg Tablet, 1000 MG PO BID for diabetes, #60 TAB Prov:ANSHUJOY GIBBONS 06/21/18 Insulin NPH Hum/Reg Insulin Hm (Relion Novolin 70-30 Vial) 100 Unit/1 Ml Vial, 10 UNIT SQ BID for diabetes, #2 VIAL Prov:JOY BRASHER DO 06/21/18 Ibuprofen* (Motrin*) 600 Mg Tab, 600 MG PO Q6, #30 TAB Prov:FAITH FOUNTAIN PA-C 12/08/17 Azithromycin* (Zithromax*) 250 Mg Tablet, 250 MG PO .RaquelPACK DIRECTED, #6 TAB TAKE 500 MG (2 TABS) THE FIRST DAY THEN 250 MG (1 TAB) DAYS 2-5 Prov:FAITH FOUNTAIN PA-C 12/08/17 Ondansetron (Ondansetron Odt) 4 Mg Tab.rapdis, 4 MG PO Q6H PRN for NAUSEA AND/OR VOMITING, #10 TAB Prov:FAITH FOUNTAIN PA-C 12/08/17 Erythromycin Base (Erythromycin) 1 Gm Oint...g., 1 APPLIC LEFT EYE QID for 7 Days Prov:PATY MCMAHON MD 04/25/17 Prednisolone Acetate* (Pred Forte*) 5 Ml Susp, 1 DROP LEFT EYE QID for 7 Days, #1 EA Prov:PATY MCMAHON MD 04/25/17 Guaifenesin/Pseudoephedrne HCl (Mucinex D ER 1,200-120 mg Tab) 1 Each Tab.er.12h, 2 EACH PO QAM for 7 Days, TAB Prov:MARICEL FOX PA-C 08/03/16 Acetaminophen* (Tylenol*) 325 Mg Tablet, 2 TAB PO Q6 PRN for PAIN AND OR ELEVATED TEMP, #20 TAB Prov:MARICEL FOX PA-C 08/03/16 Ibuprofen* (Motrin*) 400 Mg Tab, 400 MG PO Q6, #30 TAB Prov:MARICEL FOX PA-C 08/03/16 Doxycycline Hyclate* (Doxycycline Hyclate*) 100 Mg Tablet.dr, 100 MG PO BID for 10 Days, TAB Prov:MARICEL FOX PA-C 08/03/16 Ondansetron Hcl* (Zofran*) 8 Mg Tab, 8 MG PO Q6H PRN for NAUSEA AND OR VOMITING, #30 TAB Prov:LEONLISANDRO 03/16/16 Lactobacillus Rhamnosus* (Culturelle*) 1 Each Cap.sprink, 1 CAP PO BID for 14 Days, CAP Prov:LEONLISANDRO 03/16/16 Levofloxacin* (Levaquin*) 750 Mg Tablet, 750 MG PO DAILY for 11 Days, TAB Prov:LEONLISANDRO Lalito 03/16/16 Follow-up Plan Continue your insulin as prescribed I have prescribed you four more days of antibiotics to take which are available to picker feeder at [facility] Primary Care Provider Not On Staff Doctor Pending Labs Laboratory Tests Test 06/28/18 15:52 06/28/18 16:42 06/28/18 17:46 06/28/18 22:03 Bedside 203 163 134 173 Glucose mg/dL (70-220) mg/dL (70-220) mg/dL (70-220) mg/dL (70-220) Test 06/29/18 03:54 06/29/18 08:07 06/29/18 11:59 06/29/18 12:44 White Blood 9.2 Count 10^3/ul (4.8-10 .8) Red Blood 3.92 Count 10^6/ul (4.20-5 .40) Hemoglobin 11.0 g/dl (12.0-16.0 ) Hematocrit 33.1 % (37.0-47.0) Mean 84.4 Corpuscular fl (82.0-101.0) Volume Mean 28.1 Corpuscular pg (29.0-33.0) Hemoglobin Mean 33.2 Corpuscular g/dl (32.0-37.0 Hemoglobin Conc ) ent Red Cell 12.8 Distribution % (11.5-14.5) Width Platelet Count 293 10^3/UL (140-41 5) Mean Platelet 9.9 Volume fl (7.4-10.4) Immature 0.700 Granulocytes % % (0.001-0.429) Neutrophils % 65.3 % (39.0-77.0) Lymphocytes % 26.5 % (15.0-51.0) Monocytes % 5.9 % (0.0-11.0) Eosinophils % 0.8 % (0.0-7.0) Basophils % 0.8 % (0.0-2.0) Nucleated Red 0.0 Blood Cells % /100WBC (0.0-0. 0) Immature 0.060 Granulocytes # 10^3/ul (0.0-0. 031) Neutrophils # 6.0 10^3/ul (1.6-7. 5) Lymphocytes # 2.4 10^3/ul (0.8-2. 9) Monocytes # 0.5 10^3/ul (0.3-0. 9) Eosinophils # 0.1 10^3/ul (0.0-0. 5) Basophils # 0.1 10^3/ul (0.0-0. 1) Nucleated Red 0.0 Blood Cells # 10^3/ul (0.0-0. 0) Sodium Level 140 mmol/L (135-144 ) Potassium 4.2 Level mmol/L (3.5-5.1 ) Chloride Level 109 mmol/L (97-110) Carbon Dioxide 25 Level mmol/L (21-31) Anion Gap 6 (5-13) Blood Urea 16 mg/dl (7-20) Nitrogen Creatinine 0.71 mg/dl (0.44-1.0 0) Est Glomerular > 60 Filtrat mL/min (>60) Rate mL/min Glucose Level 245 mg/dl (70-220) Calcium Level 8.8 mg/dl (8.4-10.2 ) Phosphorus 2.7 Level mg/dl (2.5-4.9) Magnesium 2.1 Level mg/dl (1.7-2.5) Bedside 228 211 Glucose mg/dL (70-220) mg/dL (70-220) Lab Scanned REFERENCE Report LAB [id number] EILEEN MUNGUIA MD June 29, 2018 15:16
[2018-06-29 19:19] VITALS: BP 148/69; PULSE 83; RESP 18
[2018-06-30 02:56] VITALS: BP 161/76; PULSE 77; RESP 18
[2018-06-30] MEDS: HEPARIN 5,000 UNIT/1 ML VIAL SC SCH (06:15)
[2018-06-30 07:38] VITALS: BP 165/79; PULSE 80; RESP 17
[2018-06-30] MEDS: FAMOTIDINE 20 MG INJ IV SCH (08:07)
[2018-06-30] MEDS: MEROPENEM 1 GM/50ML(PMX) 50 ML IVPB SCH (08:07)
[2018-06-30] MEDS: INSULIN GLARGINE [LANTus] (100 UNITS/ML) SYG SC SCH (08:09)
[2018-06-30] MEDS: INSULIN ASPART [NOVOLOG] 3 ML PEN SC SCH ×2 (08:09→08:10)
--- NOTE | 2018-06-30 12:56 | PN ---
Date/Time of Note Date/Time of Note DATE: 06/30/18 TIME: 12:55 Assessment/Plan VTE Prophylaxis Risk score (from Nsg)>0 risk: 1 SCD applied (from Nsg): Yes Pharmacological prophylaxis: heparin Pharm contraindication: low risk/ambulating Lines/Catheters IV Catheter Type (from Nrsg): Saline Lock Urinary Cath still in place: No Assessment/Plan Hospital Course 58y o female with DMII who presneted with DKA and UTI She was treated with IV insulin and DKA resolved. Antibiotics were prescribed for UTI with improvement The patient reports not using insulin for about 6 months. Her daughter at bedside has been encouraging her mom to use it, but without success. I e xplained at lenght the need to use insulin daily. The patient understands. We agreed to a once daily regimen of lantus as she was hesitant to do premeal as well. She will establish care with a primary care doctor [place]. Result Diagram: 06/30/18 0435 06/29/18 0354 Results 24hrs Laboratory Tests Test 06/29/18 17:38 06/29/18 21:42 06/30/18 02:45 06/30/18 04:35 Bedside Glucose 242 H 293 H 233 H White Blood Count 5.9 # Red Blood Count 4.32 Hemoglobin 12.0 Hematocrit 36.4 L Mean Corpuscular 84.3 Volume Mean Corpuscular 27.8 L Hemoglobin Mean Corpuscular 33.0 Hemoglobin Concent Red Cell 12.5 Distribution Width Platelet Count 295 Mean Platelet Volume 9.9 Immature 0.300 Granulocytes % Neutrophils % 49.5 Lymphocytes % 40.8 Monocytes % 6.9 Eosinophils % 1.3 Basophils % 1.2 Nucleated Red Blood 0.0 Cells % Immature 0.020 Granulocytes # Neutrophils # 2.9 Lymphocytes # 2.4 Monocytes # 0.4 Eosinophils # 0.1 Basophils # 0.1 Nucleated Red Blood 0.0 Cells # Test 06/30/18 08:07 Bedside Glucose 295 H Subjective 24 Hr Interval Summary Free Text/Dictation Bonita stayed in house overnight Ready for dc today Again counseled on need for strict insulin adherence Exam/Review of Systems Exam Vitals Vital Signs Date Temp Pulse Resp B/P (MAP) Pulse Ox O2 O2 Flow FiO2 Time Delivery Rate 06/30/18 98.2 80 17 165/79 98 07:38 (107) 06/28/18 Room Air 18:00 Intake and Output 06/29/18 06/29/18 06/30/18 1515:00 23:00 07:00 IntakeIntake Total 1050 ml 530 ml BalanceBalance 1050 ml 530 ml Constitutional: alert, oriented, well developed Psych: no complaints, nl mood/affect Head: normocephalic, atraumatic Eyes: nl conjunctiva, EOMI, nl lids, nl sclera, PERRL ENMT: nl external ears & nose, nl lips & teeth, nl nasal mucosa & septum Neck: supple, non-tender Respiratory: clear to auscultation, normal air movement Cardiovascular: regular rate and rhythm, nl pulses Gastrointestinal: soft, nl liver, spleen, non-tender Musculoskeletal: nl extremities to inspection, nl gait and stance Extremities: normal pulses Neurological: STOREROOM CLERK II-XII intact, nl mental status, nl speech, nl strength Skin: nl turgor; No rash or lesions Lymph: nl lymph nodes Results Results 24hrs Laboratory Tests Test 06/29/18 17:38 06/29/18 21:42 06/30/18 02:45 06/30/18 04:35 Bedside Glucose 242 H 293 H 233 H White Blood Count 5.9 # Red Blood Count 4.32 Hemoglobin 12.0 Hematocrit 36.4 L Mean Corpuscular 84.3 Volume Mean Corpuscular 27.8 L Hemoglobin Mean Corpuscular 33.0 Hemoglobin Concent Red Cell 12.5 Distribution Width Platelet Count 295 Mean Platelet Volume 9.9 Immature 0.300 Granulocytes % Neutrophils % 49.5 Lymphocytes % 40.8 Monocytes % 6.9 Eosinophils % 1.3 Basophils % 1.2 Nucleated Red Blood 0.0 Cells % Immature 0.020 Granulocytes # Neutrophils # 2.9 Lymphocytes # 2.4 Monocytes # 0.4 Eosinophils # 0.1 Basophils # 0.1 Nucleated Red Blood 0.0 Cells # Test 06/30/18 08:07 Bedside Glucose 295 H EILEEN MUNGUIA MD June 30, 2018 12:56
== END 2018-06-30 10:50 | disposition home or self-care (01) | DRG 638 ==
LOC: E/R 23:49 → ICU 06-28 03:39 → 2NE 06-28 18:55
PROVIDERS: ADMIT Family Medicine; ATTEND Internal Medicine
DX: E11.10 Type 2 diabetes mellitus with ketoacidosis without coma (principal); N17.9 Acute kidney failure, unspecified; N39.0 Urinary tract infection, site not specified; I10 Essential (primary) hypertension; E78.5 Hyperlipidemia, unspecified
CPT/HCPCS: 36415; 71045; 74176; 80048; 80053; 81001; 82803; 82962; 83036; 83605; 83690; 83735; 84100; 84484; 85025; 85610; 87081; 87086; 93005; J0696; J0744; J1170; J1644; J1815; J1956; J2185; J2270; J2405; J3475; J3480; J7030; J7120

== ENCOUNTER 2018-08-30 18:27 | Emergency (ER) | payer SELFPAY ==
[~2018-08-30] VITALS: Ht 154.9 cm; Wt 66.2 kg
[~2018-08-30 18:27] MED LIST changes: -ACET325T33 PO; -AZIT250T PO; -CEPH-443 PO; -CIPR500T4 PO; -DOXY100T20 PO; -ERYT1OIN6 LEFT EYE; -GUAI-106 PO; -HUM100VI13 SQ; -IBUP-1542 PO; -IBUP-1561 PO; -LACT1CAP57 PO; +LANT3I SC; -LEVO750T25 PO; -MTF1000T PO; -NPH,100I5 SQ; -ONDA4TAB14 PO; -PHEN-716 PO; -PRED5DRO20 LEFT EYE; -SS SC; +SULF1TAB31 PO; -ZOF8 PO
[2018-08-30 18:35] VITALS: Ht 154.9 cm; Wt 66.2 kg
--- NOTE | 2018-08-30 20:14 | ERD ---
ER Documentation Chief Complaint Chief Complaint ABD PAIN X1DAYS WITH N/V; NO DYSURIA HPI The patient is a 58-year-old female, presenting to the ER because of painful urination, lower abdominal pain, subjective fever and vomiting for 1 day.. She had similar symptoms previously, denies chest pain, dyspnea, does not smoke nor drink Past medical history: Diabetes mellitus, hyperlipidemia, hypertension Surgical history: Cholecystectomy, hysterectomy ROS All systems reviewed and are negative except as per history of present illness. Medications Home Meds Active Scripts Ibuprofen* (Motrin*) 600 Mg Tab, 600 MG PO Q6H PRN for PAIN AND OR ELEVATED TEMP, #20 TAB Prov:JOY LOPEZ MD 08/30/18 Ciprofloxacin Hcl* (Ciprofloxacin Hcl*) 500 Mg Tablet, 500 MG PO BID for 7 Days, TAB Prov:JOY LOPEZ MD 08/30/18 Insulin Glargine* (Lantus*) 100 Unit/Ml Soln, 30 UNIT SC DAILY for 60 Days, #1 VIAL 5 Refills Prov:EILEEN MUNGUIA MD 06/29/18 Simvastatin* (Zocor*) 10 Mg Tablet, 10 MG PO QHS, #90 TAB Prov:EILEEN MUNGUIA MD 06/29/18 Metformin Hcl* (Metformin Hcl*) 1,000 Mg Tablet, 1000 MG PO WITH BREAKFAST DINNE, #120 TAB 5 Refills Prov:EILEEN MUNGUIA MD 06/29/18 Sulfamethoxazole/Trimethoprim* (Bactrim Ds* Tablet) 1 Each Tablet, 1 TAB PO BID for 4 Days, #8 TAB Prov:EILEEN MUNGUIA MD 06/29/18 Benazepril Hcl* (Benazepril Hcl*) 40 Mg Tablet, 40 MG PO BID for 30 Days, TAB 2 Refills Prov:LISANDRO QUINTERO 03/16/16 Allergies Allergies: Coded Allergies: Penicillins (Unverified Allergy, Unknown, 08/02/16) PMhx/Soc History of Surgery: Yes (uterus removed and gallbladder removed) Anesthesia Reaction: No Hx Neurological Disorder: No Hx Respiratory Disorders: No Hx Cardiac Disorders: Yes (hypertension, high cholesterol) Hx Psychiatric Problems: No Hx Miscellaneous Medical Probl: No Hx Alcohol Use: No Hx Substance Use: No Hx Tobacco Use: No Physical Exam Vitals Vital Signs Date Temp Pulse Resp B/P (MAP) Pulse Ox O2 O2 Flow FiO2 Time Delivery Rate 08/30/18 97.9 80 16 144/68 100 Room Air 23:55 (93) 08/30/18 84 20 167/78 98 Room Air 23:21 (107) 08/30/18 99.8 92 18 162/83 97 Room Air 21:33 (109) 08/30/18 100.4 97 19 180/87 99 18:35 (118) Physical Exam Const: No acute distress. Head: Atraumatic. Eyes: Normal Conjunctiva. ENT: Normal External Ears, Nose and Mouth. Neck: Full range of motion. No meningismus. Resp: Clear to auscultation bilaterally. Cardio: Regular rate and rhythm. Abd: Soft, non distended, normal bowel sounds, non tender. Skin: No petechiae or rashes. Back: No midline or flank tenderness. Ext: No cyanosis, or edema. Neur: Awake and alert. No focal deficit Psych: Normal Mood and Affect. Result Diagram: 08/30/18202308/30/182023 Results 24 hrs Laboratory Tests Test 08/30/18 20:24 08/30/18 20:29 08/30/18 20:41 08/30/18 22:19 White Blood Count 9.3 10^3/ul Red Blood Count 4.38 10^6/ul Hemoglobin 12.2 g/dl Hematocrit 36.8 % Mean Corpuscular 84.0 fl Volume Mean Corpuscular 27.9 pg Hemoglobin Mean Corpuscular 33.2 g/dl Hemoglobin Concent Red Cell 13.2 % Distribution Width Platelet Count 309 10^3/UL Mean Platelet 9.9 fl Volume Immature 0.200 % Granulocytes % Neutrophils % 76.4 % Lymphocytes % 14.5 % Monocytes % 6.3 % Eosinophils % 1.5 % Basophils % 1.1 % Nucleated Red 0.0 /100WBC Blood Cells % Immature 0.020 10^3/ul Granulocytes # Neutrophils # 7.1 10^3/ul Lymphocytes # 1.4 10^3/ul Monocytes # 0.6 10^3/ul Eosinophils # 0.1 10^3/ul Basophils # 0.1 10^3/ul Nucleated Red 0.0 10^3/ul Blood Cells # Prothrombin Time 13.3 Sec Prothrombin Time 1.0 Ratio INR International 1.00 Normalized Ratio Activated 31.[address] Time Urine Color YELLOW Urine Clarity CLOUDY Urine pH 5.0 Urine Specific 1.018 [place] Urine Ketones TRACE mg/dL Urine Nitrite NEGATIVE mg/dL Urine Bilirubin NEGATIVE mg/dL Urine Urobilinogen NEGATIVE mg/dL Urine Leukocyte 3+ Venancio/ul Esterase Urine Microscopic 6 /HPF RBC Urine Microscopic 141 /HPF WBC Urine Squamous MANY /HPF Epithelial Cells Urine Bacteria MODERATE /HPF Urine Mucus FEW /HPF Urine Hemoglobin 1+ mg/dL Urine Glucose 2+ mg/dL Urine Total 2+ mg/dl Protein Sodium Level 142 mmol/L Potassium Level 4.1 mmol/L Chloride Level 105 mmol/L Carbon Dioxide 24 mmol/L Level Anion Gap 13 Blood Urea 18 mg/dl Nitrogen Creatinine 0.72 mg/dl Est Glomerular > 60 mL/min Filtrat Rate mL/min Glucose Level 143 mg/dl Calcium Level 10.0 mg/dl Total Bilirubin 0.6 mg/dl Direct Bilirubin 0.00 mg/dl Indirect Bilirubin 0.6 mg/dl Aspartate Amino 20 IU/L Transf (AST/SGOT) Alanine 19 IU/L Aminotransferase ( ALT/SGPT) Alkaline 106 IU/L Phosphatase Troponin I < 0.012 ng/ml Total Protein 8.5 g/dl Albumin 4.3 g/dl Globulin 4.20 g/dl Albumin/Globulin 1.02 Ratio POC Venous Lactate 1.1 mmol/L POC Beta HCG, NEGATIVE Qualitative Lactic Acid Level 0.9 mmol/L Current Medications Medications Dose Sig/Nolvia Start Time Status Last (Trade) Ordered Route PRN Stop Time Admin Dose Reason Admin Sodium 1,990 ml BOLUS OVER 2 08/30/18 DC 08/30/18 Chloride HOURS STAT 20:20 20:20 (NS) IV* 08/30/18 20:22 Ondansetron 4 mg ONCE STAT 08/30/18 DC 08/30/18 HCl (Zofran IV 20:22 20:47 Inj) 08/30/18 20:23 650 mg ONCE ONCE 08/30/18 DC 08/30/18 Acetaminophen PO 20:30 20:47 (Tylenol 08/30/18 20:31 Tab) Ketorolac 30 mg ONCE STAT 08/30/18 DC 08/30/18 Tromethamine IV 20:22 20:47 (Toradol) 08/30/18 20:23 200 ml @ ONCE ONCE 08/30/18 DC 08/30/18 Ciprofloxacin 200 mls/hr IVPB 21:00 21:20 / Dextrose 08/30/18 21:59 Procedures/MDM [place] [address] Radiology Main Line: [phone] DIAGNOSTIC IMAGING REPORT Patient: MONICA ABDULLAHI : 1960 Age: 58 Sex: F MR #: [id number] DOS: 08/30/182019 Ordering MD: JOY LOPEZ MD Location: E/R Room/Bed: PROCEDURE: Portable chest x-ray. CLINICAL INDICATION: 58-year of age, female. Possible sepsis TECHNIQUE: Portable AP view of the chest. COMPARISON: Chest x-ray June 28, 2018 FINDINGS: Medical devices: None. Mediastinum: Cardiomediastinal contours are normal. Lungs: Lungs are clear. Pleura: Negative for pleural effusion or pneumothorax. Bones: No acute bony abnormality. Additional comment: None. IMPRESSION: Negative for evidence of an acute chest process. RPTAT: HCTS Physician Mona Date Time Electronically viewed and signed by Physician Mona on 08/30/2018 22:01 CS/ CC: JOY LOPEZ MD [id number] EKG: Read by emergency physician Rate/Rhythm: Normal Sinus Rhythm 99 beats/min QRS, ST, T-waves: No ST elevation, no T inversion Impression: Normal EKG MEDICAL MAKING DECISION: The patient is a 58-year-old female, presenting with acute cystitis, acute dehydration. She was treated with normal saline 30 mm/kg IV for acute dehydration, Zofran IV for nausea, Tylenol 650 mg p.o. for fever, Toradol 30 mg IV for pain and Cipro IV for UTI with good response, is stable for outpatient follow-up The differential diagnoses considered include but are not limited to choledocholithiasis, cholangitis, pancreatitis, hepatitis, gastritis, peptic ulcer disease, gastric ulcer, appendicitis, cystitis, diverticulitis, partial small bowel obstruction. She was discharged with Cipro and Motrin Departure Diagnosis: Primary Impression: UTI (urinary tract infection) Condition: Good Patient Instructions: When Your Child Has a Urinary Tract Infection (UTI) Comments I discussed the findings with the patient. I advised the patient to follow-up with the primary physician in about 1-2 days, sooner if needed and return if any concern. Disclaimer: Inadvertent spelling and grammatical errors are likely due to EHR/dictation software use and do not reflect on the overall quality of patient care. Also, please note that the electronic time recorded on this note does not necessarily reflect the actual time of the patient encounter. JOY LOPEZ MD Aug 30, 2018 20:14
[2018-08-30] MEDS ORDERED: SODIUM CHLORIDE 0.9% 1L BAG IV* STA (20:20)
[2018-08-30] MEDS ORDERED: KETOROLAC 30 MG INJ IV STA (20:22)
[2018-08-30] MEDS ORDERED: ONDANSETRON 4 MG INJ IV STA (20:22)
[2018-08-30] MEDS ORDERED: ACETAMINOPHEN 325 MG TAB PO ONE (20:30)
[2018-08-30] MEDS ORDERED: CIPROFLOXACIN 400MG/D5W 200 ML IVPB ONE (21:00)
[2018-08-30] MEDS ORDERED: IBUP-1542 PO (22:49)
[2018-08-30] MEDS ORDERED: CIPR500T4 PO (22:49)
[2018-08-30 23:55] VITALS: BP 144/68; PULSE 80; RESP 16
== END 2018-08-30 23:57 | disposition home or self-care (01) ==
LOC: E/R 18:27
DX: N30.00 Acute cystitis without hematuria (principal); E86.0 Dehydration; I10 Essential (primary) hypertension; E11.9 Type 2 diabetes mellitus without complications; Z79.4 Long term (current) use of insulin
CPT/HCPCS: 36415; 71045; 80053; 81001; 81025; 83605; 84484; 85025; 85610; 85730; 87040; 87086; 93005; 96374; 96375; 99285; J0744; J1885; J2405; J7030

== ENCOUNTER 2018-10-18 20:05 | Emergency (ER) | payer MEDICAID ==
[~2018-10-18] VITALS: Ht 152.4 cm; Wt 65.5 kg
[~2018-10-18 20:05] MED LIST changes: +BENA20TA4 PO; +CIPR500T4 PO; +IBUP-1542 PO; +LEVO500T48 PO; +ONDA4TAB8 PO
[2018-10-18 20:25] VITALS: Ht 152.4 cm; Wt 65.5 kg
[2018-10-18] MEDS ORDERED: SODIUM CHLORIDE 0.9% 1L BAG IV* STA (20:47)
[2018-10-18] MEDS ORDERED: CEFEPIME 2GM/50 ML (PMX) 50 ML IVPB STA (20:47)
[2018-10-18] MEDS ORDERED: VANCOMYCIN 1 GM (PMX) 250 ML IVPB ONE (21:00)
[2018-10-18] MEDS ORDERED: ACETAMINOPHEN 325 MG TAB PO ONE (21:00)
[2018-10-19 00:15] VITALS: BP 145/70; PULSE 82; RESP 18
== END 2018-10-19 00:18 | disposition home or self-care (01) ==
LOC: E/R 20:05
DX: J01.00 Acute maxillary sinusitis, unspecified (principal); N30.00 Acute cystitis without hematuria; I10 Essential (primary) hypertension; E11.9 Type 2 diabetes mellitus without complications; R07.9 Chest pain, unspecified; Z79.4 Long term (current) use of insulin
CPT/HCPCS: 36415; 71045; 80053; 81001; 83605; 84484; 85025; 85610; 85730; 87040; 93005; 96361; 96365; 96366; 96367; J0692; J3370; J7030; Z7502; Z7610

== ENCOUNTER 2018-10-19 15:35 | Emergency (ER) | payer MEDICAID ==
[~2018-10-19] VITALS: Ht 154.9 cm; Wt 67.5 kg
[2018-10-19 15:40] VITALS: Ht 154.9 cm; Wt 67.5 kg
[2018-10-19] MEDS ORDERED: SODIUM CHLORIDE 0.9% 1L BAG IV* STA (15:54)
[2018-10-19] MEDS ORDERED: ALPRAZOLAM 0.25 MG TAB PO ONE (16:00)
[2018-10-19] MEDS ORDERED: IBUPROFEN 600 MG TAB PO ONE (16:00)
[2018-10-19] MEDS ORDERED: ALBUTEROL 0.5% (NEB) 2.5 MG/0.5 ML AMP INH STA (16:00)
[2018-10-19] MEDS ORDERED: ONDANSETRON 4 MG INJ IV STA (16:11)
[2018-10-19 18:30] VITALS: BP 165/76; PULSE 112; RESP 18
== END 2018-10-19 18:41 | disposition home or self-care (01) ==
LOC: E/R 15:35
DX: N30.00 Acute cystitis without hematuria (principal); I10 Essential (primary) hypertension; E11.9 Type 2 diabetes mellitus without complications; R06.02 Shortness of breath; Z79.4 Long term (current) use of insulin
CPT/HCPCS: 71045; 80053; 81001; 83605; 83690; 83880; 84484; 85025; 85610; 85730; 86140; 87040; 87086; 93005; 94644; 96374; J2405; J7030; Z7502; Z7610